=== PATIENT | male | born 1965 | race Caucasian/White ===

== ENCOUNTER 2016-08-07 21:10 | Emergency (ER) | payer MEDICAID ==
[2016-08-07 22:22] LABS: APPEARANCE CLEAR (CLEAR); BILIRUBIN NEGATIVE (NEGATIVE); COLOR STRAW (YELLOW); GLUCOSE NEGATIVE (NEGATIVE); KETONE NEGATIVE (NEGATIVE); LEUKOCYTE ESTERASE NEGATIVE (NEGATIVE); NITRITE NEGATIVE (NEGATIVE); PROTEIN NEGATIVE (NEGATIVE); UROBILINOGEN NORMAL (NORMAL)
[2016-08-07 22:33] LABS: UDS - AMPHET NEGATIVE QUAL (NEGATIVE); UDS - BARB NEGATIVE QUAL (NEGATIVE); UDS - BENZO POSITIVE QUAL (NEGATIVE); UDS - COCAINE NEGATIVE QUAL (NEGATIVE); UDS - METH NEGATIVE QUAL (NEGATIVE); UDS - OPIATE NEGATIVE QUAL (NEGATIVE); UDS - PCP NEGATIVE QUAL (NEGATIVE); UDS - THC NEGATIVE QUAL (NEGATIVE)
[2016-08-07 23:17] LABS: BASOPHILS 0.3 % (0.0-2.0); EOSINOPHILS 2.4 % (0-7); HEMATOCRIT 41.8 % (42.0-54.0); HEMOGLOBIN 14.9 g/dL (13.5-17.5); IMMATURE GRANULOCYTES 0.2 % (0-5); LYMPHOCYTES 24.6 % (15-50); MCH 31.4 pg (26.0-34.0); MCHC 35.6 g/dL (31.0-37.0); MCV 88.2 fL (80.0-100.0); MEAN PLATELET VOLUME 8.5 fL (7.4-10.4); MONOCYTES 9.9 % (2-11); NEUTROPHILS 62.6 % (40-80); RBC 4.74 10x6/uL (4.20-6.10); RDW 14.4 % (11.5-14.5); WBC 8.8 10x3/uL (4.8-10.8)
[2016-08-07 23:18] LABS: PLATELET COUNT 139 10x3/uL (130-400)
[2016-08-07 23:37] LABS: ALBUMIN 4.2 g/dL (3.4-5.0); ALKALINE PHOSPHATASE 76 U/L (46-116); ALT (SGPT) 83 U/L (10-68); BILIRUBIN - TOTAL 0.35 mg/dL (0.2-1.3); CALC OSMOLALITY 285 mosm/kg (275-300); CALCIUM 9.9 mg/dL (8.5-10.1); CARBON DIOXIDE 23.1 mmol/L (21.0-32.0); CHLORIDE - SERUM 105 mmol/L (98-107); GLUCOSE 114 mg/dL (74-106); POTASSIUM - SERUM 3.9 mmol/L (3.5-5.1); PROTEIN - SERUM 7.2 g/dL (6.4-8.2); SODIUM 144 mmol/L (136-145); UREA NITROGEN 7 mg/dL (7-18); eGFR NON AFRICAN AMERICAN 84 mL/min (90-120)
[2016-08-07 23:45] LABS: TROPONIN-I < 0.017 ng/mL (0.000-0.060)
== END 2016-08-08 04:00 | disposition short-term general hospital (02) ==
LOC: D.ER 21:10
PROVIDERS: Family Medicine
DX: F32.9 Major depressive disorder, single episode, unspecified (principal); F15.10 Other stimulant abuse, uncomplicated; F13.10 Sedative, hypnotic or anxiolytic abuse, uncomplicated; R45.851 Suicidal ideations; R44.3 Hallucinations, unspecified; E11.9 Type 2 diabetes mellitus without complications; R07.9 Chest pain, unspecified

== ENCOUNTER 2016-12-02 18:06 | Observation (INO) | payer MEDICAID ==
[~2016-12-02] VITALS: Ht 167.6 cm; Wt 78.0 kg
[2016-12-02 19:24] LABS: BASOPHILS 0.5 % (0-2); EOSINOPHILS 3.4 % (0-7); HEMATOCRIT 39.1 % (42.0-54.0); HEMOGLOBIN 14.1 g/dL (13.5-17.5); IMMATURE GRANULOCYTES 0.3 % (0-5); LYMPHOCYTES 35.7 % (15-50); MCH 31.3 pg (26.0-34.0); MCHC 36.1 g/dL (31.0-37.0); MCV 86.9 fL (80.0-100.0); MEAN PLATELET VOLUME 8.9 fL (7.4-10.4); MONOCYTES 9.3 % (2-11); NEUTROPHILS 50.8 % (40-80); PLATELET COUNT 142 10x3/uL (130-400); RDW 14.7 % (11.5-14.5); WBC 6.1 10x3/uL (4.8-10.8)
[2016-12-02 20:04] LABS: UDS - AMPHET NEGATIVE QUAL (NEGATIVE); UDS - BARB NEGATIVE QUAL (NEGATIVE); UDS - BENZO POSITIVE QUAL (NEGATIVE); UDS - COCAINE NEGATIVE QUAL (NEGATIVE); UDS - METH NEGATIVE QUAL (NEGATIVE); UDS - OPIATE NEGATIVE QUAL (NEGATIVE); UDS - PCP NEGATIVE QUAL (NEGATIVE); UDS - THC NEGATIVE QUAL (NEGATIVE)
[2016-12-02 20:10] LABS: HEMOGLOBIN A1C 6.4 % (4.8-6.0)
[2016-12-02 20:11] LABS: APPEARANCE CLEAR (CLEAR); COLOR YELLOW (YELLOW)
[2016-12-02 20:12] LABS: BILIRUBIN NEGATIVE (NEGATIVE); GLUCOSE NEGATIVE (NEGATIVE); KETONE NEGATIVE (NEGATIVE); LEUKOCYTE ESTERASE NEGATIVE (NEGATIVE); NITRITE NEGATIVE (NEGATIVE); PROTEIN NEGATIVE (NEGATIVE); SPECIFIC GRAVITY 1.015 (1.005-1.020); UROBILINOGEN NORMAL (NORMAL)
[2016-12-02 20:20] LABS: ALBUMIN 3.4 g/dL (3.4-5.0); ALKALINE PHOSPHATASE 60 U/L (46-116); ALT (SGPT) 29 U/L (10-68); BILIRUBIN - TOTAL 0.15 mg/dL (0.2-1.3); CALC OSMOLALITY 288 mosm/kg (275-300); CALCIUM 8.4 mg/dL (8.5-10.1); CARBON DIOXIDE 23.9 mmol/L (21.0-32.0); CHLORIDE - SERUM 109 mmol/L (98-107); GLUCOSE 211 mg/dL (74-106); POTASSIUM - SERUM 3.4 mmol/L (3.5-5.1); PROTEIN - SERUM 5.6 g/dL (6.4-8.2); SODIUM 143 mmol/L (136-145); TROPONIN-I < 0.017 ng/mL (0.000-0.060); UREA NITROGEN 7 mg/dL (7-18); eGFR NON AFRICAN AMERICAN 84 mL/min (90-120)
[2016-12-02 20:38] LABS: ACETAMINOPHEN 3.1 ug/mL (10.0-30.0)
[2016-12-02 20:53] LABS: AMYLASE - SERUM 45 U/L (25-115); LIPASE 366 U/L (73-393)
[2016-12-02] MEDS ORDERED: LISINOPRIL10 MG PO (22:44)
[2016-12-02] MEDS ORDERED: ATIVAN2 MG PO (22:44)
[2016-12-02] MEDS ORDERED: GLUCOPHAGE500 MG PO (22:44)
[2016-12-02 22:45] VITALS: BP 135/89; BMI 26.5
[2016-12-02] MEDS ORDERED: ULTRAM50 MG PO (22:45)
[2016-12-03] VITALS (27 sets, daily range): BP systolic 111–154; BP diastolic 63–95
[2016-12-03 05:12] LABS: CHOL - HDL RATIO 3.9 ratio (2.3-4.9)
--- NOTE | 2016-12-03 07:00 | NUR ---
REPORT RECEIVED. ASSESSMENT COMPLETED. NO NEEDS VOICED.
--- NOTE | 2016-12-03 08:40 | NUR ---
REPORT CALLED TO MOLLY SERNA IN CVICU. PATIENT WILL MOVE TO THAT UNIT.
--- NOTE | 2016-12-03 09:19 | NUR ---
PT BROUGHT TO ROOM VIA WHEELCHAIR. PT IS ALERT AND ORIENTED. RESPONDS TO QUESTIONS APPROPRIATELY. FLAT AFFECT. HOOKED UP TO MONITORING EQUIPMENT. ORIENTED TO ROOM. IV AT LEFT AC WITH NS AT 75 RUNNING, SITE WNL. ON ROOM AIR. PT HAS BELONGINGS BAG WITH NAME STICKER AT NURSES DESK. HR 77. SAT 95% ON ROOM AIR, RESP 12 BP 135/83
--- NOTE | 2016-12-03 10:47 | NUR ---
PT RESTING QUIETLY. VSS.
--- NOTE | 2016-12-03 11:00 | NUR ---
PT ASSISTED UP TO TOILET. SMALL BOWEL MOVEMENT. PT C/O LOWER ABDOMENAL PAIN.
--- NOTE | 2016-12-03 12:45 | HP ---
PATIENT: CYRUS JAVIER MEDICAL RECORD: [id number] ACCOUNT: [id number] LOCATION:[facility] D.CV02 : 66 ADMISSION DATE: 12/02/16 HISTORY AND PHYSICAL EXAMINATION HISTORY OF PRESENT ILLNESS: Mr. Javier is a 51-year-old white male that presents to the Emergency Room after overdosing on Valium, Xanax and Ativan. He is initially pretty lethargic, but is now easily arousable and oriented to person. He states that he has been having abdominal pain and just could not take anymore. He reports a blood in his stool. He has a history of colon cancer. oncologist in [place]. He has a history of substance abuse problems in the past. He is going to be admitted at this time for further evaluation. PAST MEDICAL HISTORY: Significant for colon cancer with excision in 2011. He has a history of some chest pain in the past that possibly was cardiac. He has a history of depression and diabetes. He has moved back and forth between [facility] and [place] and does not have a recent primary care physician here in [facility]. He is admitted to the ICU for monitoring of his overdose and psychiatric consult. We will try to work out the source of his abdominal pain and reassess his diabetes. Past medical history again is significant for colon cancer with colon resection in 2011, recreational drug use, NIDDM, depression and hypertension. PAST SURGICAL HISTORY: Previous surgeries include a colon resection and an appendectomy. He also had some bladder surgeries in his appendix out according to patient. Previous back surgeries. ALLERGIES OR INTOLERANCES: INCLUDE HALDOL. HOME MEDICATIONS: Include lisinopril 10 mg a day, metformin 500 b.i.d., Ativan 3 times a day and tramadol 3 times a day. Some of the meds he took tonight that he overdosed on belong to a friend. FAMILY HISTORY: Sketchy. SOCIAL HISTORY: The patient has a history of recreational drug use. He is disabled due to mental problems and some plates in his back. REVIEW OF SYSTEMS: He denies any fever. Denies any weight loss. Does complain of abdominal pain with recent blood per rectum. He denies any dysuria. He denies chest pain or shortness of breath. He complains of increasing depression with suicidal thoughts. PHYSICAL EXAMINATION: GENERAL: He is now alert and oriented. He appears in no distress. HEENT: Sclerae nonicteric. NECK: Soft and supple. HEART: Regular. LUNGS: Clear. ABDOMEN: Soft, reveal scar from previous surgery. He is tender in the left lower quadrant. NEUROLOGIC: Without any gross focal deficits. IMPRESSION: HISTORY AND PHYSICAL [id number] CYRUS JAVIER 1. Overdose. 2. Depression. 3. History of recreational drug use. 4. Hms-xghgoif-zerchfjqe diabetes mellitus. 5. History of colon cancer. PLAN: Admit to ICU. Psych consult. IV fluids. Check CEA level. CT abdomen and pelvis. See orders for rest of plan. TRANSINT:[id number] Voice Confirmation ID: [id number] DOCUMENT ID: [id number] ASHER RITTER DO at 1245 CC: [id number] DICTATION DATE: 12/02/162002 ANTIQUE AUTOMOBILES REPAIRER: 12/02/16 2221 ADM IN [facility] [address] [place] [address]
--- NOTE | 2016-12-03 12:59 | NUR ---
DR HUSTON HAS BEEN IN TO SEE PATIENT. DR SILVERMAN NOW IN SPEAKING TO PATIENT
--- NOTE | 2016-12-03 14:45 | NUR ---
PT ASKING FOR NICOTINE PATCH. DR RITTER PAGED. MARSHA GARCIA RETURNED CALL FOR DR RITTER. ASKED FOR ORDER OF 14MG PATCH DAILY DR CÁRDENAS IN ROOM TO SEE PATIENT AT THIS TIME
--- NOTE | 2016-12-03 17:24 | NUR ---
PT GIVEN BOWEL PREP AND EXPLAINED HE NEEDED TO DRINK AT 1 FULL CUP EVERY 45 MINUTES. C/O PAIN IN ABDOMEN. HAD TO EXPLAIN AGAIN HIS PAIN MEDICINE IS ONLY AVAILABLE EVERY 6 HOURS AND HIS NEXT DOSE CANNOT BE BEFORE 7:15. BEDSIDE TOILET PROVIDED FOR CONVENIENCE FOR HIM WELL WIPES AND BUTT PASTE.
--- NOTE | 2016-12-03 18:42 | NUR ---
PT HAS BEEN UP TO BEDSIDE TOILET FOR BM. NO BLEEDING NOTED. PT HR HAS STARTED DIPPING DOWN IN TO 57-59 RANGE OVER THE LAST 15 MINUTES. SINUS RHYTHM.
--- NOTE | 2016-12-03 19:00 | NUR ---
Received patient resting in bed with eyes open, Assessment completed per flowsheet. Patient AO x4, calm and cooperative. Eyes PERRLA @ 3mm with brisk response, sclera is white. S1/S2 noted NSR on telemetry with HR 64, rhythmic and regular. Crackles noted on expiration bilateral upper and mid with diminished lower, breathing is even and unlabored on room air with O2 sat 94%. Abdomen is soft and round, bowel sounds active x4. Patient currently on Aarti, ambulates to bedside without assistance. Full ROM all extremities with all pulses palpable, cap refill <3 sec. 20g PIV noted L AC, dressing intact with fluids infusing. Patient c/o constant abdominal pain rates 6/10, repositioned and will provide PRN pain meds when available. Denies other needs at this time, all VSS and will continue to monitor.
--- NOTE | 2016-12-03 23:00 | NUR ---
Reassessment completed per flowsheet, patient resting in bed with eyes closed. S1/S2 noted NSR on telemetry with HR 61, rhythmic and regular. Breathing is even and unlabored on room air, O2 sat 95%. Abdomen is tender to touch with bowel sounds active x4, large amount of liquid brown stool noted in bedside commode. Patient states chronic pain lower abdomen /10, repositioned for comfort with PRN medication given. No further needs at this time, all VSS and will continue to monitor.
[2016-12-04] VITALS (24 sets, daily range): BP systolic 111–152; BP diastolic 77–99; Ht 167.6 cm; Wt 78.0 kg
--- NOTE | 2016-12-04 01:00 | NUR ---
Patient resting in bed with eyes closed, breathing is even and unlabored. Patient states no desire to harm self at this time, "just wants stomach to stop hurting" and states pain 3/10. Repositioned for comfort, no further needs at this time, all VSS and will continue to monitor.
--- NOTE | 2016-12-04 02:58 | NUR ---
Reassessment completed per flowsheet, patient resting in bed with eyes closed. S1/S2 noted Sinus Juan on telemetry with HR 59, rhythmic and regular. Breathing is even and unlabored on room air, O2 sat 94%. Crackles noted on expiration bilateral upper with diminished lower. Abdomen is round and soft, tender to palpation and passing flatus with liquid brown stool noted in bedside commode. Patient states chronic abdominal pain 3/, repositioned with patient stating relief. No further needs at this time, all VSS and will continue to monitor.
[2016-12-04 04:25] LABS: BASOPHILS 0.4 % (0-2); EOSINOPHILS 3.5 % (0-7); HEMATOCRIT 38.6 % (42.0-54.0); HEMOGLOBIN 13.8 g/dL (13.5-17.5); LYMPHOCYTES 44.4 % (15-50); MCH 30.9 pg (26.0-34.0); MCHC 35.8 g/dL (31.0-37.0); MCV 86.4 fL (80.0-100.0); MEAN PLATELET VOLUME 8.8 fL (7.4-10.4); MONOCYTES 11.7 % (2-11); PLATELET COUNT 122 10x3/uL (130-400); RBC 4.47 10x6/uL (4.20-6.10); RDW 14.6 % (11.5-14.5); WBC 4.9 10x3/uL (4.8-10.8)
[2016-12-04 04:35] LABS: ALBUMIN 3.1 g/dL (3.4-5.0); ALKALINE PHOSPHATASE 58 U/L (46-116); ALT (SGPT) 30 U/L (10-68); AMYLASE - SERUM 39 U/L (25-115); BILIRUBIN - TOTAL 0.37 mg/dL (0.2-1.3); CALCIUM 7.9 mg/dL (8.5-10.1); CARBON DIOXIDE 27.4 mmol/L (21.0-32.0); CHLORIDE - SERUM 107 mmol/L (98-107); CREATININE - SERUM 0.9 mg/dL (0.6-1.3); LIPASE 183 U/L (73-393); POTASSIUM - SERUM 3.8 mmol/L (3.5-5.1); PROTEIN - SERUM 5.5 g/dL (6.4-8.2); SODIUM 140 mmol/L (136-145); UREA NITROGEN 6 mg/dL (7-18); eGFR NON AFRICAN AMERICAN > 90 mL/min (90-120)
[2016-12-04 04:37] LABS: CALC OSMOLALITY 277 mosm/kg (275-300); GLUCOSE 110 mg/dL (74-106)
--- NOTE | 2016-12-04 07:00 | NUR ---
rec'd care of pt.&o x3.
--- NOTE | 2016-12-04 07:45 | NUR ---
INITIAL ASSWESSMENT COMPLETED PER FLOW SHEET. PIV STARTED AT RIGHT AC. 20 GAUGE.
--- NOTE | 2016-12-04 08:45 | NUR ---
PT. STATES "I WAS SORTA TRYING TO HURT MYSELF WHEN I TOOK THE MEDICINE." VERBAL NO HARM CONTRACT OBTAINED.
--- NOTE | 2016-12-04 11:00 | NUR ---
1500CC SOAP H2O ENEMA X2.
--- NOTE | 2016-12-04 11:00 | NUR ---
REASSESSMENT COMPLETED PER FLOW SHEET. NO ACUTE CHANGES.
--- NOTE | 2016-12-04 12:30 | NUR ---
GI TEAM SETTING UP AT BEDSIDE FOR PROCEDURES.
--- NOTE | 2016-12-04 13:23 | NUR ---
GI TEAM PERFORMING EGD AND COLONOSCOPY.
--- NOTE | 2016-12-04 13:38 | CN ---
PATIENT NAME:CYRUS JAVIER MEDICAL RECORD: [id number] : 67 LOCATION:[facility].CV02 ADMIT DATE: 12/02/16 ACCOUNT: [id number] CONSULTING PHYSICIAN: MICHAEL SILVERMAN MD REFERRING PHYSICIAN: ASHER RITTER DO DATE OF CONSULTATION: 12/03/2016 Psychiatric Consultation IDENTIFYING DATA: The patient is 51 years old and admitted to the hospital after an overdose. CHIEF COMPLAINT: "My stomach hurts." HISTORY OF PRESENT ILLNESS: The patient has a number of depressive symptoms. He endorses loss of interest in usual activities and feeling helpless and hopeless. He freely admits that he took the overdose of the multiple benzodiazepines in an effort to kill himself. He says that he has ongoing and periodic thoughts about still hurting himself and says that his main problem is that his stomach hurts, that he will kill himself if something cannot be done to fix this. PAST PSYCHIATRIC HISTORY: Significant for polysubstance abuse as well as previous psychiatric hospitalizations as well as previous suicide attempts. The patient appears to be of borderline intellectual functioning or perhaps even mentally retarded. MENTAL STATUS EXAMINATION: The patient is awake, alert and oriented to person, place, time and situation. His mood is flat. His affect is constricted. Thought processes are circumstantial. Memory, concentration and abstraction abilities are moderately impaired and he denies that he would actively seek to harm others, but has the ambivalent feelings about harming himself as described above. He denies psychotic symptoms. ASSESSMENT: 1. Status post overdose. 2. Major depression. 3. 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 4. History of substance abuse. PLAN: At this time, the patient is not acutely dangerous, but I do believe he has the potential to harm himself under the right set of circumstances and I further believe that he does not have the ability to appropriately seek interventions that might help him. It is my recommendation that once medically stabilized, he be transferred to adult inpatient psychiatric care and he is very much willing to do this. He has been to the [facility] and would like to return there. I also think it is appropriate to start an antidepressant while hospitalized here and evaluating his abdominal pain. TRANSINT:[id number] Voice Confirmation ID: [id number] DOCUMENT ID: [id number] CONSULT REPORT [id number] CYRUS JAVIER, MICHAEL MURPHY at 1338 CC: [id number] DICTATION DATE: 12/03/161509 TECHNICAL SOLUTIONS ENGINEER: 12/03/16 1538 ADM IN [place] [id number] [place] [id number]
--- NOTE | 2016-12-04 14:56 | NUR ---
REASSESSMENT COMPLETED PER FLOW SHEET. NO ACUTE CHANGES.
--- NOTE | 2016-12-04 16:54 | NUR ---
WATCHING TV. DENIES NEEDS. VSS.
--- NOTE | 2016-12-04 19:00 | NUR ---
SHIFT ASSESSMENT COMPLETE, SEE FOR DETAILS. PATIENT ALERT AND ORIENTED X4, VSS, RAC PIV INFUSING NS @ 75MLS/HR. SITE C/D/I WITH NO S/S OF INFILTRATION OR INFECTION. PATIENT UP TO BEDSIDE COMMODE AT THIS TIME. AMBULATES WELL, STEADY GATE.
--- NOTE | 2016-12-04 21:00 | NUR ---
PATIENT DENIES NEED AT THIS TIME. NO VISITORS.
--- NOTE | 2016-12-04 23:00 | NUR ---
REASSESSMENT COMPLETE, SEE FLOWSHEET FOR DETAILS. NO CHANGES, VSS.
--- NOTE | 2016-12-04 23:28 | NUR ---
PT IN UNCONTROLLED A FIB RATE 128. ORDERS RECIEVED. WILL ADM.
--- NOTE | 2016-12-04 23:36 | NUR ---
PT CONVERTED INTO NSR. RATE 86 ON OWN.
[2016-12-05] VITALS (24 sets, daily range): BP systolic 103–140; BP diastolic 53–92
--- NOTE | 2016-12-05 01:00 | NUR ---
PATIENT RESTING WITH EYES CLOSED, VSS.
--- NOTE | 2016-12-05 03:01 | NUR ---
REASSESSMENT COMPLETE, DENIES NEED. BED LOW AND CL IN REACH. VSS. SEE FLOWSHEET FOR DETAILS.
--- NOTE | 2016-12-05 05:14 | NUR ---
PATIENT RESTING WITH EYES CLOSED. VSS. CL IN REACH. BED LOW AND LOCKED. WILL MONITOR.
--- NOTE | 2016-12-05 07:00 | NUR ---
REPORT RECEIVED, SHIFT ASSESSMENT COMPLETE. SEE FLOWSHEET FOR FINDINGS.
--- NOTE | 2016-12-05 08:20 | NUR ---
PT C/O PAIN IN ABDOMEN. REQUESTED PAIN MEDICATIONS. IV DILAUDID PROVIDED. MORNING MEDICATIONS ADMINISTERED. DENIES ANY OTHER NEEDS AT THIS TIME.
--- NOTE | 2016-12-05 11:00 | NUR ---
PT ASKING ABOUT BEING DISCHARGED HOME AND POSSIBLY DOING OUTPATIENT PSYCH CARE. LET HIM KNOW THAT MOST LIKELY WITH HAVE TO DO INPATIENT CARE AT DISCHARGE AND THEN WILL HAVE FOLLOW UP OUTPATIENT CARE. HE ASKED ME TO DISCUSS THIS WITH DR RITTER. I DID. DR RITTER SAID DR SILVERMAN HAD INDICATED THAT THE PATIENT WOULD HAVE TO GO TO INPATIENT CARE AT DISCHARGE.
--- NOTE | 2016-12-05 13:43 | NUR ---
CM NOTE: REFERRAL SENT TO BENITA AT [facility]. [facility] HAS NUMBER TO UNIT TO CONTACT BENITA IF NEEDED. .
--- NOTE | 2016-12-05 14:21 | NUR ---
PT C/O PAIN. ASKED FOR PAIN MEDICATION. RATES PAIN /
--- NOTE | 2016-12-05 17:00 | NUR ---
DINNER TRAY PROVIDED TO PATIENT. HE REQUESTED A CUP OF COFFEE. COFFEE PROVIDED
--- NOTE | 2016-12-05 19:00 | NUR ---
LAYING IN BED SUPINE. ENCOURAGED TO TURN AT LEAST EVERY 2 HOURS. NO VISITORS. TV ON. ORIENTED TO TIME, PERSON, AND PLACE. SCALP INTACT. EENT WNL. SKIN DRY, INTACT AND WARM TO THE TOUCH. S1S2 PRESENT. CAROTID PULSES +2 RADIAL PULSES +2 EQUAL BILATERALLY. POPLITEAL PULSES +2 EQUAL BILATERALLY. SYMMETRICAL RISE AND FALL OF CHEST. LUNG SOUNDS CLEAR ALL LOBES. ABDOMEN OBESE NONTENDER AND NONDISTENDED. BS PRESENT X4. ASSISTED PT OUT OF BED HE NEEDED TO USE THE BATHROOM. GAIT STEADY NO PROBLEMS AMBULATING ON OWN. URINE OUTPUT CLEAR YELLOW. NO PROBLEMS STATED WITH VOIDING. BACK IN BED. BED IN LOWEST POSITION. CALL LIGHT WITHIN REACH. DENIES FURTHER NEEDS AT THIS TIME.
--- NOTE | 2016-12-05 21:00 | NUR ---
LAYING IN BED ON HIS R SIDE. ASSISTED OUT OF BED TO USE BATHROOM. GAIT STEADY. NO PROBLEMS AMBULATING. VOIDED CLEAR YELLOW URINE. ASSISTED BACK IN BED. SCDs BACK ON. BED IN LOWEST POSITION. CALL LIGHT WITHIN REACH. DENIES FURTHER NEEDS AT THIS TIME.
--- NOTE | 2016-12-05 23:00 | NUR ---
LAYING ON HIS L SIDE. SLEEPING. LIGHTS OFF. BED IN LOWEST POSITION.
[2016-12-06] VITALS (12 sets, daily range): BP systolic 106–134; BP diastolic 60–81
--- NOTE | 2016-12-06 01:00 | NUR ---
ASLEEP LAYING ON R SIDE. BED IN LOWEST POSITION. CALL LIGHT WITHIN REACH.
--- NOTE | 2016-12-06 03:00 | NUR ---
REASSESSMENT COMPLETE. SEE FLOWSHEET. BED IN LOWEST POSITION. CALL LIGHT WITHIN REACH. DENIES NEEDS AT THIS TIME.
--- NOTE | 2016-12-06 09:52 | NUR ---
TC to [facility] @ 2013 as follow up to referral 12/05/16. Screener to call CM with decision. She presently has four referrals. DILLON spoke with primary nurse, Samra to advise of present status.
--- NOTE | 2016-12-06 11:15 | NUR ---
UP IN ROOM. NO CURRENT NEEDS OR C/O.
--- NOTE | 2016-12-06 16:15 | NUR ---
SPOKE WITH STEPHANIE FROM [facility]. STATES AT THIS TIME THEY HAVE NO MALE BED AVAILABLE. CASE MANAGEMENT NOTIFIED.
--- NOTE | 2016-12-06 18:50 | NUR ---
Dillon received telephone from [facility] stating patient needs could not be met. DILLON had contacted the [facility]. Had spoken with Lupe. She stated they were expecting discharges after 1600. She requested clinical be faxed. DILLON faxed at [phone] Received telephone call from Lupe. They had received 2 ER referrals. She did not have an available bed at any [facility] facility at this time. CM to continue search.
--- NOTE | 2016-12-06 19:00 | NUR ---
1900- SHIFT ASSESSMENT COMPLETE, SEE FLOWSHEET. VSS, CL IN REACH, NO S/S OF DISTESS. A&O X4. WILL MONITOR 2100- NIGHT MEDS GIVEN ALONG WITH BEVERAGE. DENIES FURTHER NEED. 2300- PATIENT RESTING WITH EYES CLOSED. RR EVEN AND NONLABORED, VSS. WILL CONTINUE TO MONITOR. 0100- PATIENT RESTING WITH EYES CLOSED. VSS. 0300- REASSESSMENT DONE, RR EVEN, NO SIGNS OF DISTRESS. S1S2, ASYMPTOMATIC BRADYCARDIA ON MONITOR WITH A RATE OF 55. DENIES NEED AT THIS TIME. WILL MONITOR. 0300
[2016-12-07 03:00] VITALS: BP 107/56
--- NOTE | 2016-12-07 06:00 | NUR ---
MORNING MEDS GIVEN, ALONG WITH PRN PAIN MED.
[2016-12-07 07:00] VITALS: BP 101/68
[2016-12-07 11:00] VITALS: BP 135/85
[2016-12-07 15:00] VITALS: BP 133/86
--- NOTE | 2016-12-07 15:20 | NUR ---
SPOKE WITH AFTER HOURS SCREENER FOR [facility]. STATES NO MALE BEDS OPEN AT THIS TIME.
--- NOTE | 2016-12-07 15:31 | NUR ---
SPOKE WITH DR. RITTER. INFORMED OF PT'S DESIRE TO GO HOME AND DO OUTPATIENT FOLLOW UP. STATES AT THIS TIME PT IS NOT ON A HOLD BUT IF PT SHOULD CHANGE HIS MIND ABOUT VOLUNTARILY GOING TO TREATMENT A HOLD WOULD BE NECESSARY DUE TO THE PSYCH DOCTOR'S RECOMMENDATIONS.
[2016-12-07 19:00] VITALS: BP 134/83
--- NOTE | 2016-12-07 19:00 | NUR ---
TC to [facility] and spoke with stars coordinatorElysia. No beds. TC to [facility] by Samra, primary nurse, No beds. TC to [facility]- no beds. TC to [facility]- Animal Care Attendant, Ernie. No beds. TC to [facility] - patients over 60 only. TC to [facility]. Spoke with Ashleigh. Faxed clinical to [phone] for review at 1600- CM nor primary nurse has been appraised of decision. patient is growing impatient as per primary nurse. DR Dennis aware of progress.
--- NOTE | 2016-12-07 19:00 | NUR ---
Received patient resting in bed with eyes open, Assessment completed per flowsheet. AO x4, calm and cooperative. Eyes PERRLA @ 3mm with brisk response, sclera white. S1/S2 noted with patient Sinus Juan on Telemetry with HR 50, rhythmic and regular. Breathing is even and unlabored on room air, lung sounds clear all hernandez. Abdomen is soft and flat, non-tender to palpation with bowel sounds active x4. Patient ambulates sefl to bathroom without assistance, no difficulties reported. 20g PIV noted R AC, saline locked with dressing intact. Full ROM all extremities with all pulses palpable, cap refill <3 sec. Patient denies pain or other needs at this time, all VSS and will continue to monitor.
--- NOTE | 2016-12-07 21:00 | NUR ---
No visitors at this time. Patient states he hungry, sandwich tray provided. No further needs at this time, all VSS and will continue to monitor.
[2016-12-07 23:00] VITALS: BP 154/87
--- NOTE | 2016-12-07 23:00 | NUR ---
Patient resting in bed with eyes closed. S1/S2 noted with patient Sinus Juan on telemetry with HR 53, rhythmic and regular. Breathing is even and unlabored on room air, O2 sat 95%. Denies pain or other needs at this time, all VSS and will continue to monitor.
[2016-12-08 03:00] VITALS: BP 116/67
--- NOTE | 2016-12-08 03:00 | NUR ---
Patient resting in bed with eyes closed. S1/S2 noted with patient Sinus Juan on telemetry with HR 52, rhythmic and regular. Breathing is even and unlabored on room air, O2 sat 95%. Patient denies pain or other needs at this time, all VSS and will continue to monitor.
--- NOTE | 2016-12-08 05:00 | NUR ---
Patient resting in bed with eyes closed, breathing is even and unlabored on room air. Denies pain or other needs at this time, all VSS and will continue to monitor.
[2016-12-08 07:00] VITALS: BP 131/86
--- NOTE | 2016-12-08 07:06 | NUR ---
REPORT RECD PT CARE ASSUMED. PT IS ALERT AND ORIENTED X4. S1S2 NOTED, SB PER CM. LUNG SOUNDS CLR BILAT. PT IS AMBUALTORY. PT C/O 8/10 STOMACH/ KNEE PAIN AT THIS TIME. WILL ADDRESS. PT PROVIDED WITH BREAKFAST TRAY, FEEDS INDEPENDENTLY. VSS. WILL MONITOR.
--- NOTE | 2016-12-08 09:00 | NUR ---
PT RESTING COMFORTABLY IN BED. FRESH COFFEE PROVIDED ON REQUEST. VSS. WILL CONTINUE TO MONITOR.
[2016-12-08 11:00] VITALS: BP 136/83
--- NOTE | 2016-12-08 11:03 | NUR ---
NO CHANGES PER REASSESSMENT. VSS.
--- NOTE | 2016-12-08 12:49 | NUR ---
Nutrition follow-up: diet: Regular PO intake 100% of meals Labs reviewed RDN following.
[2016-12-08 15:00] VITALS: BP 141/85
--- NOTE | 2016-12-08 15:00 | NUR ---
SPOKE WITH DR SILVERMAN AND DR TORRES, OK TO SEND TO OUTPATIENT, WILL D/C TODAY.
[2016-12-08] MEDS ORDERED: CELEXA20 MG PO (15:31)
[2016-12-08] MEDS ORDERED: PROTONIX40 MG PO (15:34)
--- NOTE | 2016-12-08 16:32 | NUR ---
DISCHARGE INSTRUCTIONS DISCUSSED WITH PT. PT AMBULATORY TO LEAVE.
--- NOTE | 2016-12-09 14:44 | PN ---
PATIENT:CYRUS JAVIER MEDICAL RECORD: [id number] LOCATION:[facility] D.CV0 ADMISSION DATE: 12/02/16 PROGRESS NOTE DATE OF SERVICE: 12/08/2016 SUBJECTIVE: The patient's case was discussed with staff. He has no new complaint. OBJECTIVE: The patient has been in the hospital now for a week, his stomach no longer hurts and he is no longer expressing any distress. His primary care doctor started him on an antidepressant a week ago. He says it has been helpful. He denies that he wants to harm himself and he now is saying that the amount of medication he supposedly took with the overdose is not correct and that it was less. He says that he did this because he was angry with his roommate. He does not want to go to inpatient psychiatric care. ASSESSMENT: No change in diagnoses. PLAN: The patient to my review is extremely manipulative and attention seeking in a manner consistent with a personality disorder. I do think he is or was significantly depressed. I also think he made something of a suicide attempt. He does not currently meet inpatient criteria for involuntary treatment and that he is denying being suicidal and is clearly not psychotic. I am still recommending inpatient treatment. He is, however, refusing it and cannot be forced at this point with a court order to go to psychiatric care on an inpatient basis. Given those circumstances, I am at least somewhat reassured by the fact that he is willing to go to outpatient treatment at [facility] and he will have an appointment for this before being discharged when medically stable. TRANSINT:[id number] Voice Confirmation ID: [id number] DOCUMENT ID: [id number] MICHAEL SILVERMAN MD at 1444 CC: [id number] DICTATION DATE: 12/08/16 1504 SENIOR BILLING CONSULTANT: 12/09/16 0016 DIS IN 12/08/16 [facility] [address] [place] [address]
== END 2016-12-08 16:45 | disposition home or self-care (01) ==
LOC: D.ER 18:06 → D.ICU 20:32 → OBSVTIME 20:32 → D.CVICU 20:32 → D.ICU 20:32 → D.CVICU 12-03 09:19
PROVIDERS: Physician Assistant; ADMIT Family Medicine
DX: T42.4X2A Poisoning by benzodiazepines, intentional self-harm, initial encounter (principal); R10.9 Unspecified abdominal pain; K66.0 Peritoneal adhesions (postprocedural) (postinfection); K29.70 Gastritis, unspecified, without bleeding; K57.90 Diverticulosis of intestine, part unspecified, without perforation or abscess without bleeding; F32.9 Major depressive disorder, single episode, unspecified; I10 Essential (primary) hypertension; E11.9 Type 2 diabetes mellitus without complications; Z85.038 Personal history of other malignant neoplasm of large intestine; Z72.0 Tobacco use

== ENCOUNTER 2016-12-31 02:38 | Emergency (ER) | payer MEDICAID ==
[2016-12-04 11:06] VITALS: BMI 28.9
[~2016-12-31 02:38] MED LIST: ATIVAN2 MG PO; CELEXA20 MG PO; GLUCOPHAGE500 MG PO; LISINOPRIL10 MG PO; PROTONIX40 MG PO; ULTRAM50 MG PO
[2016-12-31 03:05] LABS: BASOPHILS 0.8 % (0-2); EOSINOPHILS 2.6 % (0-7); HEMATOCRIT 41.5 % (42.0-54.0); HEMOGLOBIN 15.2 g/dL (13.5-17.5); IMMATURE GRANULOCYTES 0.2 % (0-5); LYMPHOCYTES 49.9 % (15-50); MCHC 36.6 g/dL (31.0-37.0); MCV 84.7 fL (80.0-100.0); MEAN PLATELET VOLUME 8.6 fL (7.4-10.4); MONOCYTES 9.5 % (2-11); RDW 14.1 % (11.5-14.5); WBC 5.1 10x3/uL (4.8-10.8)
[2016-12-31 03:08] LABS: PLATELET COUNT 152 10x3/uL (130-400)
[2016-12-31 03:08] LABS: APPEARANCE CLEAR (CLEAR); BILIRUBIN NEGATIVE (NEGATIVE); COLOR STRAW (YELLOW); GLUCOSE NEGATIVE (NEGATIVE); KETONE NEGATIVE (NEGATIVE); LEUKOCYTE ESTERASE NEGATIVE (NEGATIVE); NITRITE NEGATIVE (NEGATIVE); PH 5.5 (5.0-6.0); PROTEIN NEGATIVE (NEGATIVE); SPECIFIC GRAVITY 1.005 (1.005-1.020); UROBILINOGEN NORMAL (NORMAL)
[2016-12-31 03:18] LABS: UDS - AMPHET NEGATIVE QUAL (NEGATIVE); UDS - BARB NEGATIVE QUAL (NEGATIVE); UDS - BENZO NEGATIVE QUAL (NEGATIVE); UDS - COCAINE NEGATIVE QUAL (NEGATIVE); UDS - METH NEGATIVE QUAL (NEGATIVE); UDS - OPIATE NEGATIVE QUAL (NEGATIVE); UDS - PCP NEGATIVE QUAL (NEGATIVE); UDS - THC NEGATIVE QUAL (NEGATIVE)
[2016-12-31 03:23] LABS: ALBUMIN 4.1 g/dL (3.4-5.0); ALKALINE PHOSPHATASE 82 U/L (46-116); ALT (SGPT) 40 U/L (10-68); CALC OSMOLALITY 275 mosm/kg (275-300); CALCIUM 8.4 mg/dL (8.5-10.1); CARBON DIOXIDE 23.8 mmol/L (21.0-32.0); CHLORIDE - SERUM 102 mmol/L (98-107); CREATININE - SERUM 0.9 mg/dL (0.6-1.3); GLUCOSE 153 mg/dL (74-106); POTASSIUM - SERUM 3.5 mmol/L (3.5-5.1); PROTEIN - SERUM 7.1 g/dL (6.4-8.2); SODIUM 138 mmol/L (136-145); UREA NITROGEN 3 mg/dL (7-18); eGFR NON AFRICAN AMERICAN > 90 mL/min (90-120)
== END 2016-12-31 13:15 | disposition home or self-care (01) ==
LOC: D.ER 02:38
PROVIDERS: Family Medicine
DX: R45.851 Suicidal ideations (principal); F10.129 Alcohol abuse with intoxication, unspecified

== ENCOUNTER 2017-01-30 14:54 | Emergency (ER) | payer MEDICAID ==
[2016-12-04 11:06] VITALS: BMI 28.9
[2017-01-30 15:40] LABS: BASOPHILS 0.3 % (0-2); EOSINOPHILS 1.2 % (0-7); HEMATOCRIT 46.4 % (42.0-54.0); HEMOGLOBIN 16.7 g/dL (13.5-17.5); IMMATURE GRANULOCYTES 0.3 % (0-5); LYMPHOCYTES 24.2 % (15-50); MCH 31.3 pg (26.0-34.0); MCV 87.1 fL (80.0-100.0); MEAN PLATELET VOLUME 8.7 fL (7.4-10.4); MONOCYTES 6.6 % (2-11); NEUTROPHILS 67.4 % (40-80); PLATELET COUNT 147 10x3/uL (130-400); RBC 5.33 10x6/uL (4.20-6.10); RDW 14.4 % (11.5-14.5); WBC 7.3 10x3/uL (4.8-10.8)
[2017-01-30 15:45] LABS: APPEARANCE CLEAR (CLEAR); BILIRUBIN NEGATIVE (NEGATIVE); COLOR YELLOW (YELLOW); GLUCOSE 50 mg/dL (NEGATIVE); KETONE NEGATIVE (NEGATIVE); LEUKOCYTE ESTERASE NEGATIVE (NEGATIVE); NITRITE NEGATIVE (NEGATIVE); PROTEIN NEGATIVE (NEGATIVE); UROBILINOGEN NORMAL (NORMAL)
[2017-01-30 15:59] LABS: UDS - AMPHET NEGATIVE QUAL (NEGATIVE); UDS - BARB NEGATIVE QUAL (NEGATIVE); UDS - BENZO NEGATIVE QUAL (NEGATIVE); UDS - COCAINE NEGATIVE QUAL (NEGATIVE); UDS - METH NEGATIVE QUAL (NEGATIVE); UDS - OPIATE NEGATIVE QUAL (NEGATIVE); UDS - PCP NEGATIVE QUAL (NEGATIVE); UDS - THC NEGATIVE QUAL (NEGATIVE)
[2017-01-30 16:10] LABS: ALBUMIN 3.8 g/dL (3.4-5.0); ANION GAP 15.8 mmol/L (8-16); BILIRUBIN - TOTAL 0.35 mg/dL (0.2-1.3); CALCIUM 9.3 mg/dL (8.5-10.1); CARBON DIOXIDE 24.7 mmol/L (21.0-32.0); CREATININE - SERUM 1.2 mg/dL (0.6-1.3); POTASSIUM - SERUM 4.5 mmol/L (3.5-5.1); PROTEIN - SERUM 7.1 g/dL (6.4-8.2)
== END 2017-01-30 19:20 | disposition short-term general hospital (02) ==
LOC: D.ER 14:54
PROVIDERS: Emergency Medicine
DX: R45.851 Suicidal ideations (principal); F15.10 Other stimulant abuse, uncomplicated; Z85.038 Personal history of other malignant neoplasm of large intestine; E11.9 Type 2 diabetes mellitus without complications; I10 Essential (primary) hypertension; F17.200 Nicotine dependence, unspecified, uncomplicated; R00.0 Tachycardia, unspecified

== ENCOUNTER 2017-03-07 17:42 | Emergency (ER) | payer MEDICAID ==
[2016-12-04 11:06] VITALS: BMI 28.9
[2017-03-07 18:18] LABS: APPEARANCE CLEAR (CLEAR); BILIRUBIN NEGATIVE (NEGATIVE); COLOR YELLOW (YELLOW); GLUCOSE NEGATIVE (NEGATIVE); KETONE NEGATIVE (NEGATIVE); LEUKOCYTE ESTERASE NEGATIVE (NEGATIVE); NITRITE NEGATIVE (NEGATIVE); PH 5.5 (5.0-6.0); PROTEIN NEGATIVE (NEGATIVE); SPECIFIC GRAVITY 1.005 (1.005-1.020); UROBILINOGEN NORMAL (NORMAL)
[2017-03-07 18:20] LABS: UDS - AMPHET NEGATIVE QUAL (NEGATIVE); UDS - BARB NEGATIVE QUAL (NEGATIVE); UDS - BENZO NEGATIVE QUAL (NEGATIVE); UDS - COCAINE NEGATIVE QUAL (NEGATIVE); UDS - METH NEGATIVE QUAL (NEGATIVE); UDS - OPIATE NEGATIVE QUAL (NEGATIVE); UDS - PCP NEGATIVE QUAL (NEGATIVE); UDS - THC NEGATIVE QUAL (NEGATIVE)
[2017-03-07 18:27] LABS: BASOPHILS 0.6 % (0-2); EOSINOPHILS 1.7 % (0-7); HEMATOCRIT 45.5 % (42.0-54.0); HEMOGLOBIN 16.7 g/dL (13.5-17.5); IMMATURE GRANULOCYTES 0.1 % (0-5); LYMPHOCYTES 47.8 % (15-50); MCH 31.5 pg (26.0-34.0); MCHC 36.7 g/dL (31.0-37.0); MCV 85.8 fL (80.0-100.0); MONOCYTES 5.9 % (2-11); NEUTROPHILS 43.9 % (40-80); PLATELET COUNT 157 10x3/uL (130-400); RDW 13.8 % (11.5-14.5); WBC 7.1 10x3/uL (4.8-10.8)
[2017-03-07 18:49] LABS: ALBUMIN 4.3 g/dL (3.4-5.0); ALKALINE PHOSPHATASE 87 U/L (46-116); ALT (SGPT) 39 U/L (10-68); BILIRUBIN - TOTAL 0.33 mg/dL (0.2-1.3); CALC OSMOLALITY 264 mosm/kg (275-300); CALCIUM 8.5 mg/dL (8.5-10.1); CARBON DIOXIDE 24.6 mmol/L (21.0-32.0); CHLORIDE - SERUM 97 mmol/L (98-107); CREATININE - SERUM 0.8 mg/dL (0.6-1.3); GLUCOSE 140 mg/dL (74-106); POTASSIUM - SERUM 3.6 mmol/L (3.5-5.1); PROTEIN - SERUM 7.4 g/dL (6.4-8.2); SODIUM 133 mmol/L (136-145); UREA NITROGEN 3 mg/dL (7-18); eGFR NON AFRICAN AMERICAN > 90 mL/min (90-120)
== END 2017-03-08 18:23 ==
LOC: D.ER 17:42
PROVIDERS: Emergency Medicine
DX: R45.851 Suicidal ideations (principal); F15.10 Other stimulant abuse, uncomplicated; F12.10 Cannabis abuse, uncomplicated; F14.10 Cocaine abuse, uncomplicated; Z85.038 Personal history of other malignant neoplasm of large intestine; E11.9 Type 2 diabetes mellitus without complications; R45.1 Restlessness and agitation; F22 Delusional disorders; F32.9 Major depressive disorder, single episode, unspecified; F17.200 Nicotine dependence, unspecified, uncomplicated

== ENCOUNTER 2017-03-20 17:43 | Emergency (ER) | payer MEDICAID ==
[2016-12-04 11:06] VITALS: BMI 28.9
[2017-03-20 18:09] LABS: APPEARANCE CLEAR (CLEAR); BILIRUBIN NEGATIVE (NEGATIVE); COLOR YELLOW (YELLOW); GLUCOSE 100 mg/dL (NEGATIVE); KETONE NEGATIVE (NEGATIVE); LEUKOCYTE ESTERASE NEGATIVE (NEGATIVE); NITRITE NEGATIVE (NEGATIVE); PROTEIN NEGATIVE (NEGATIVE); UROBILINOGEN NORMAL (NORMAL)
[2017-03-20 18:16] LABS: UDS - AMPHET NEGATIVE QUAL (NEGATIVE); UDS - BARB NEGATIVE QUAL (NEGATIVE); UDS - BENZO NEGATIVE QUAL (NEGATIVE); UDS - COCAINE NEGATIVE QUAL (NEGATIVE); UDS - METH NEGATIVE QUAL (NEGATIVE); UDS - OPIATE NEGATIVE QUAL (NEGATIVE); UDS - PCP NEGATIVE QUAL (NEGATIVE); UDS - THC NEGATIVE QUAL (NEGATIVE)
[2017-03-20 18:19] LABS: BASOPHILS 0.3 % (0-2); EOSINOPHILS 0.8 % (0-7); HEMATOCRIT 45.2 % (42.0-54.0); HEMOGLOBIN 17.3 g/dL (13.5-17.5); IMMATURE GRANULOCYTES 0.1 % (0-5); LYMPHOCYTES 37.3 % (15-50); MCH 31.6 pg (26.0-34.0); MCHC 38.3 g/dL (31.0-37.0); MCV 82.6 fL (80.0-100.0); MEAN PLATELET VOLUME 8.8 fL (7.4-10.4); MONOCYTES 10.9 % (2-11); NEUTROPHILS 50.6 % (40-80); PLATELET COUNT 162 10x3/uL (130-400); RBC 5.47 10x6/uL (4.20-6.10); RDW 13.2 % (11.5-14.5); WBC 7.6 10x3/uL (4.8-10.8)
[2017-03-20 18:34] LABS: ALBUMIN 4.4 g/dL (3.4-5.0); ALKALINE PHOSPHATASE 107 U/L (46-116); ALT (SGPT) 45 U/L (10-68); BILIRUBIN - TOTAL 0.43 mg/dL (0.2-1.3); CALCIUM 8.7 mg/dL (8.5-10.1); CARBON DIOXIDE 22.9 mmol/L (21.0-32.0); CREATININE - SERUM 0.9 mg/dL (0.6-1.3); POTASSIUM - SERUM 3.5 mmol/L (3.5-5.1); PROTEIN - SERUM 7.6 g/dL (6.4-8.2); SODIUM 123 mmol/L (136-145); UREA NITROGEN 7 mg/dL (7-18); eGFR NON AFRICAN AMERICAN > 90 mL/min (90-120)
[2017-03-20 18:35] LABS: CALC OSMOLALITY 250 mosm/kg (275-300); GLUCOSE 195 mg/dL (74-106)
[2017-03-20 18:36] LABS: CHLORIDE - SERUM 85 mmol/L (98-107)
[2017-03-20 18:39] LABS: TROPONIN-I < 0.017 ng/mL (0.000-0.060)
== END 2017-03-21 06:00 | disposition short-term general hospital (02) ==
LOC: D.ER 17:43
PROVIDERS: Emergency Medicine; Physician Assistant Medical
DX: F10.10 Alcohol abuse, uncomplicated (principal); R45.851 Suicidal ideations; E11.9 Type 2 diabetes mellitus without complications; I10 Essential (primary) hypertension; R06.00 Dyspnea, unspecified; R11.10 Vomiting, unspecified; F17.200 Nicotine dependence, unspecified, uncomplicated; R00.0 Tachycardia, unspecified

== ENCOUNTER 2017-04-10 15:47 | Emergency (ER) | payer MEDICAID ==
[2016-12-04 11:06] VITALS: BMI 28.9
== END 2017-04-10 20:55 | disposition home or self-care (01) ==
LOC: D.ER 15:47
DX: A08.4 Viral intestinal infection, unspecified (principal); R11.10 Vomiting, unspecified; R19.7 Diarrhea, unspecified; E11.9 Type 2 diabetes mellitus without complications; I10 Essential (primary) hypertension; F17.200 Nicotine dependence, unspecified, uncomplicated

== ENCOUNTER 2017-11-11 21:08 | Emergency (ER) | payer MEDICAID ==
[2016-12-04 11:06] VITALS: BMI 28.9
== END 2017-11-11 22:30 | disposition home or self-care (01) ==
LOC: D.ER 21:08
DX: F10.129 Alcohol abuse with intoxication, unspecified (principal); L08.9 Local infection of the skin and subcutaneous tissue, unspecified; F15.10 Other stimulant abuse, uncomplicated; F17.200 Nicotine dependence, unspecified, uncomplicated

== ENCOUNTER 2018-05-19 01:51 | Observation (INO) | payer MEDICAID ==
[2018-05-19] VITALS (21 sets, daily range): BP systolic 108–172; BP diastolic 77–117; Ht 167.6 cm; Wt 75.6 kg
[~2018-05-19] VITALS: Ht 167.6 cm; Wt 75.6 kg
--- NOTE | ~2018-05-19 | CN ---
PATIENT NAME:CYRUS JAVIER MEDICAL RECORD: [id number] : 67 LOCATION:[facility].2312 ADMIT DATE: 05/19/18 ACCOUNT: [id number] CONSULTING PHYSICIAN: MICHAEL SILVERMAN MD REFERRING PHYSICIAN: ANTONY PASTRANA MD DATE OF CONSULTATION: 05/19/2018 IDENTIFYING DATA: The patient is 53 years old and he was admitted to the hospital secondary to chest pain. While in the Emergency Room, the patient was also found to be drunk and high on methamphetamine. He made some statements about not wanting to live or possibly killing himself. That was late last night. He is now sober, awake, alert, and cooperative. He tells me that he does have a terrible problem with drugs and alcohol. He cannot control himself. He also endorses a lot of depressive symptoms; but says that he would not hurt himself, he was just drunk and upset and was having chest pain and very frustrated. He does express an interest in substance abuse treatment and says that he would be willing to go to inpatient residential treatment. MENTAL STATUS EXAMINATION: The patient is awake; alert; and oriented to person, place, time, and situation. His mood is depressed. His affect is appropriate. Thought processes are goal directed and his memory, concentration, and abstraction abilities are intact. He has no psychotic symptoms and no thoughts of harming himself or others. ASSESSMENT: 1. Polysubstance abuse. 2. Major depression. PLAN: At this time, the patient is not an acute danger to himself or others. Once he is medically stabilized, I recommend transferring him to acute inpatient substance abuse treatment. In the interim, standard protocol for alcohol detox should be undertaken. He has a longstanding problem with drugs and alcohol, and in the past when he has tried to stop drinking on his own, he has had serious DT-type symptoms. He is not acutely dangerous in my view. He did try to hurt himself about 30 years ago with an overdose, but he has had no attempts since then. He is single. He is on social security disability and has a limited support system. Again, I strongly recommend inpatient residential substance abuse treatment with medical detox as part of that and this is something he is interested in and wants to attend. TRANSINT:[id number] Voice Confirmation ID: [id number] DOCUMENT ID: [id number] MICHAEL SILVERMAN MD at 1254 CC: [id number] DICTATION DATE: 05/19/181740 SPIRAL GEAR GENERATOR: 05/19/18 185 ADM IN [facility] [address] [place] [address]
[2018-05-19 02:19] LABS: APPEARANCE CLEAR (CLEAR); BILIRUBIN NEGATIVE (NEGATIVE); COLOR YELLOW (YELLOW); GLUCOSE NEGATIVE (NEGATIVE); KETONE NEGATIVE (NEGATIVE); NITRITE NEGATIVE (NEGATIVE); PROTEIN TRACE mg/dL (NEGATIVE); UROBILINOGEN NORMAL (NORMAL)
[2018-05-19 02:20] LABS: BACTERIA NONE SEEN /hpf (NONE SEEN); EPITHELIAL CELLS 0-5 /hpf (0-5); RED CELLS - URINE 0-5 /hpf (0-5); WHITE CELLS - URINE 0-5 /hpf (0-5)
[2018-05-19 02:22] LABS: UDS - AMPHET POSITIVE QUAL (NEGATIVE); UDS - BARB NEGATIVE QUAL (NEGATIVE); UDS - BENZO NEGATIVE QUAL (NEGATIVE); UDS - COCAINE NEGATIVE QUAL (NEGATIVE); UDS - OPIATE NEGATIVE QUAL (NEGATIVE); UDS - PCP NEGATIVE QUAL (NEGATIVE); UDS - THC NEGATIVE QUAL (NEGATIVE)
[2018-05-19 02:51] LABS: EOSINOPHILS 2.5 % (0-7); HEMATOCRIT 40.5 % (42.0-54.0); HEMOGLOBIN 14.6 g/dL (13.5-17.5); IMMATURE GRANULOCYTES 0.2 % (0-5); LYMPHOCYTES 40.9 % (15-50); MCH 31.9 pg (26.0-34.0); MCV 88.6 fL (80.0-100.0); MEAN PLATELET VOLUME 8.1 fL (7.4-10.4); MONOCYTES 9.6 % (2-11); NEUTROPHILS 45.8 % (40-80); PLATELET COUNT 148 10x3/uL (130-400); RBC 4.57 10x6/uL (4.20-6.10); RDW 14.4 % (11.5-14.5); WBC 4.8 10x3/uL (4.8-10.8)
[2018-05-19 03:06] LABS: ALBUMIN 3.6 g/dL (3.4-5.0); ALKALINE PHOSPHATASE 78 U/L (46-116); ALT (SGPT) 50 U/L (10-68); BILIRUBIN - TOTAL 0.19 mg/dL (0.2-1.3); CALC OSMOLALITY 292 mosm/kg (275-300); CALCIUM 7.7 mg/dL (8.5-10.1); CHLORIDE - SERUM 109 mmol/L (98-107); CREATININE - SERUM 0.8 mg/dL (0.6-1.3); POTASSIUM - SERUM 3.9 mmol/L (3.5-5.1); PROTEIN - SERUM 6.6 g/dL (6.4-8.2); SODIUM 147 mmol/L (136-145); UREA NITROGEN 7 mg/dL (7-18); eGFR NON AFRICAN AMERICAN > 90 mL/min (90-120)
[2018-05-19 03:07] LABS: GLUCOSE 147 mg/dL (74-106)
[2018-05-19 03:29] LABS: CKMB 2.9 U/L (0.0-3.6); CREATINE KINASE 370 UL (21-232); MAGNESIUM - SERUM 2.3 mg/dL (1.8-2.4)
[2018-05-19 03:32] LABS: TROPONIN-I < 0.017 ng/mL (0.000-0.060)
[2018-05-19 09:00] LABS: CKMB 2.2 U/L (0.0-3.6); CREATINE KINASE 318 UL (21-232); TROPONIN-I < 0.017 ng/mL (0.000-0.060)
[2018-05-19 15:41] LABS: CKMB 1.6 U/L (0.0-3.6)
[2018-05-19 15:43] LABS: CREATINE KINASE 237 UL (21-232); TROPONIN-I < 0.017 ng/mL (0.000-0.060)
[2018-05-19 21:22] LABS: CKMB 1.6 U/L (0.0-3.6); CREATINE KINASE 205 UL (21-232); TROPONIN-I < 0.017 ng/mL (0.000-0.060)
[2018-05-20] VITALS (17 sets, daily range): BP systolic 129–157; BP diastolic 80–115
[2018-05-20 04:10] LABS: BASOPHILS 0.5 % (0-2); EOSINOPHILS 1.9 % (0-7); HEMATOCRIT 41.8 % (42.0-54.0); IMMATURE GRANULOCYTES 0.1 % (0-5); LYMPHOCYTES 18.8 % (15-50); MCH 31.8 pg (26.0-34.0); MCHC 35.9 g/dL (31.0-37.0); MCV 88.7 fL (80.0-100.0); MEAN PLATELET VOLUME 8.8 fL (7.4-10.4); MONOCYTES 10.1 % (2-11); NEUTROPHILS 68.6 % (40-80); PLATELET COUNT 148 10x3/uL (130-400); RBC 4.71 10x6/uL (4.20-6.10); RDW 14.1 % (11.5-14.5)
[2018-05-20 04:11] LABS: WBC 7.4 10x3/uL (4.8-10.8)
[2018-05-20 04:26] LABS: ALBUMIN 3.4 g/dL (3.4-5.0); ALKALINE PHOSPHATASE 74 U/L (46-116); ALT (SGPT) 43 U/L (10-68); BILIRUBIN - TOTAL 0.52 mg/dL (0.2-1.3); CALCIUM 8.6 mg/dL (8.5-10.1); CHLORIDE - SERUM 103 mmol/L (98-107); CREATININE - SERUM 0.8 mg/dL (0.6-1.3); GLUCOSE 154 mg/dL (74-106); MAGNESIUM - SERUM 2.1 mg/dL (1.8-2.4); PROTEIN - SERUM 6.4 g/dL (6.4-8.2); SODIUM 138 mmol/L (136-145); eGFR NON AFRICAN AMERICAN > 90 mL/min (90-120)
[2018-05-20 04:29] LABS: CALC OSMOLALITY 278 mosm/kg (275-300); UREA NITROGEN 12 mg/dL (7-18)
== END 2018-05-20 20:47 | disposition home or self-care (01) ==
LOC: D.ER 01:51 → D.ICU 04:35 → OBSVTIME 04:35 → D.ICU 04:35 → D.EDHOLD 04:35 → D.ICU 04:59
PROVIDERS: Family Medicine
DX: I20.9 Angina pectoris, unspecified (principal); F10.129 Alcohol abuse with intoxication, unspecified; F15.10 Other stimulant abuse, uncomplicated; F41.8 Other specified anxiety disorders; E11.65 Type 2 diabetes mellitus with hyperglycemia; I10 Essential (primary) hypertension; F17.200 Nicotine dependence, unspecified, uncomplicated; Z85.048 Personal history of other malignant neoplasm of rectum, rectosigmoid junction, and anus

== ENCOUNTER 2018-07-13 01:45 | Emergency (ER) | payer MEDICAID ==
[~2018-07-13] VITALS: Ht 167.6 cm; Wt 68.2 kg
[2018-07-13 01:50] VITALS: Ht 167.6 cm; Wt 68.2 kg
[2018-07-13 01:58] LABS: APPEARANCE CLEAR (CLEAR); BILIRUBIN NEGATIVE (NEGATIVE); COLOR YELLOW (YELLOW); GLUCOSE NEGATIVE (NEGATIVE); KETONE NEGATIVE (NEGATIVE); NITRITE NEGATIVE (NEGATIVE); PROTEIN NEGATIVE (NEGATIVE); SPECIFIC GRAVITY 1.015 (1.005-1.020); UROBILINOGEN NORMAL (NORMAL)
[2018-07-13 02:04] LABS: UDS - AMPHET POSITIVE QUAL (NEGATIVE); UDS - BARB NEGATIVE QUAL (NEGATIVE); UDS - BENZO NEGATIVE QUAL (NEGATIVE); UDS - COCAINE NEGATIVE QUAL (NEGATIVE); UDS - OPIATE NEGATIVE QUAL (NEGATIVE); UDS - PCP NEGATIVE QUAL (NEGATIVE); UDS - THC NEGATIVE QUAL (NEGATIVE)
[2018-07-13 02:08] LABS: BASOPHILS 0.7 % (0-2); EOSINOPHILS 3.4 % (0-7); HEMATOCRIT 42.5 % (42.0-54.0); HEMOGLOBIN 15.5 g/dL (13.5-17.5); IMMATURE GRANULOCYTES 0.2 % (0-5); LYMPHOCYTES 46.3 % (15-50); MCH 32.5 pg (26.0-34.0); MCHC 36.5 g/dL (31.0-37.0); MCV 89.1 fL (80.0-100.0); MEAN PLATELET VOLUME 8.5 fL (7.4-10.4); MONOCYTES 9.6 % (2-11); NEUTROPHILS 39.8 % (40-80); PLATELET COUNT 127 10x3/uL (130-400); RBC 4.77 10x6/uL (4.20-6.10); RDW 13.3 % (11.5-14.5); WBC 4.1 10x3/uL (4.8-10.8)
[2018-07-13 02:25] LABS: ALBUMIN 3.5 g/dL (3.4-5.0); ALKALINE PHOSPHATASE 72 U/L (46-116); ALT (SGPT) 52 U/L (10-68); BILIRUBIN - TOTAL 0.21 mg/dL (0.2-1.3); CALC OSMOLALITY 284 mosm/kg (275-300); CALCIUM 8.3 mg/dL (8.5-10.1); CARBON DIOXIDE 24.8 mmol/L (21.0-32.0); CHLORIDE - SERUM 107 mmol/L (98-107); CREATININE - SERUM 0.9 mg/dL (0.6-1.3); GLUCOSE 125 mg/dL (74-106); POTASSIUM - SERUM 4.2 mmol/L (3.5-5.1); PROTEIN - SERUM 6.8 g/dL (6.4-8.2); SODIUM 143 mmol/L (136-145); UREA NITROGEN 10 mg/dL (7-18); eGFR NON AFRICAN AMERICAN > 90 mL/min (90-120)
[2018-07-13 02:39] LABS: CKMB 1.2 U/L (0.0-3.6); CREATINE KINASE 120 UL (21-232); MAGNESIUM - SERUM 2.1 mg/dL (1.8-2.4); TROPONIN-I < 0.017 ng/mL (0.000-0.060)
[2018-07-13] MEDS ORDERED: LIBRIUM25 MG PO (06:18)
[2018-07-13 06:43] VITALS: BP 140/78
== END 2018-07-13 06:44 | disposition home or self-care (01) ==
LOC: D.ER 01:45
PROVIDERS: Family Medicine
DX: F10.129 Alcohol abuse with intoxication, unspecified (principal); F10.10 Alcohol abuse, uncomplicated; F19.10 Other psychoactive substance abuse, uncomplicated; F17.200 Nicotine dependence, unspecified, uncomplicated

== ENCOUNTER 2018-08-12 16:58 | Emergency (ER) | payer MEDICAID ==
[~2018-08-12] VITALS: Ht 167.6 cm; Wt 69.1 kg
[~2018-08-12 16:58] MED LIST changes: +LIBRIUM25 MG PO
[2018-08-12 17:02] VITALS: Ht 167.6 cm; Wt 69.1 kg
[2018-08-12 18:00] LABS: BASOPHILS 0.4 % (0-2); EOSINOPHILS 2.8 % (0-7); HEMOGLOBIN 16.6 g/dL (13.5-17.5); LYMPHOCYTES 49.7 % (15-50); MCH 32.7 pg (26.0-34.0); MCHC 36.9 g/dL (31.0-37.0); MCV 88.8 fL (80.0-100.0); MEAN PLATELET VOLUME 8.6 fL (7.4-10.4); MONOCYTES 12.5 % (2-11); NEUTROPHILS 34.6 % (40-80); RBC 5.07 10x6/uL (4.20-6.10); RDW 13.2 % (11.5-14.5); WBC 4.6 10x3/uL (4.8-10.8)
[2018-08-12 18:05] LABS: PLATELET COUNT 161 10x3/uL (130-400)
[2018-08-12 18:14] LABS: ALKALINE PHOSPHATASE 94 U/L (46-116); ALT (SGPT) 49 U/L (10-68); BILIRUBIN - TOTAL 0.23 mg/dL (0.2-1.3); CALC OSMOLALITY 286 mosm/kg (275-300); CALCIUM 8.6 mg/dL (8.5-10.1); CARBON DIOXIDE 25.6 mmol/L (21.0-32.0); CHLORIDE - SERUM 105 mmol/L (98-107); CREATININE - SERUM 0.9 mg/dL (0.6-1.3); GLUCOSE 133 mg/dL (74-106); POTASSIUM - SERUM 4.2 mmol/L (3.5-5.1); PROTEIN - SERUM 7.5 g/dL (6.4-8.2); SODIUM 144 mmol/L (136-145); UREA NITROGEN 6 mg/dL (7-18); eGFR NON AFRICAN AMERICAN > 90 mL/min (90-120)
[2018-08-12 23:40] VITALS: BP 130/87
== END 2018-08-12 23:40 | disposition home or self-care (01) ==
LOC: D.ER 16:58
PROVIDERS: Family Medicine
DX: R51 Headache (principal); F10.129 Alcohol abuse with intoxication, unspecified; R07.81 Pleurodynia; S99.921A Unspecified injury of right foot, initial encounter; Y04.2XXA Assault by strike against or bumped into by another person, initial encounter; Y93.89 Activity, other specified; Y92.89 Other specified places as the place of occurrence of the external cause; E11.9 Type 2 diabetes mellitus without complications; I10 Essential (primary) hypertension; Z85.038 Personal history of other malignant neoplasm of large intestine; Z85.048 Personal history of other malignant neoplasm of rectum, rectosigmoid junction, and anus; F17.200 Nicotine dependence, unspecified, uncomplicated

== ENCOUNTER 2018-12-30 17:33 | Emergency (ER) | payer MEDICAID ==
[~2018-12-30] VITALS: Ht 167.6 cm; Wt 90.9 kg
[2018-12-30 17:41] VITALS: Ht 167.6 cm; Wt 90.9 kg
--- NOTE | 2018-12-30 18:04 | NUR ---
ATTEMPTING TO GET SUICIDE ASSESSMENT BUT PT CONTINUES TO COMPLAIN ABOUT BEING TIRED. HE STATED THAT HE HASN'T SLEPT IN 8 OR 9 DAYS. PT STATED THAT HE DRINKS ALOT ESPECIALLY WHEN HE CAN'T GET ANY METH. PT IS LETHARGIC AND WORDS ARE SLURRED.
--- NOTE | 2018-12-30 18:23 | NUR ---
PT IS A HIGH RISK PER THE ASSESSMENT. PT HAS A HX OF METH USE AND WHEN HE CAN'T GET THAT HE DRINKS MORE PER PT. PT DID MAKE THREATS ABOUT BEATING UP PEOPLE IF HE DOESN'T GET WHAT HE WANTS. ENCOURAGED PT TO CONTROL HIS ANGER AND NOT ACT OUT. PT AGREEABLE TO GO TO A DUAL DIAGNOSIS CENTER WHICH IS WHAT DR. SILVERMAN RECOMMENDS DUE TO HIS DEPRESSION AND DRUG ABUSE. PT IS TEARFUL AND UPSET OVER HIS FRIENDS DIEING OF OVERDOSE OR BEING PLACED IN LONG-TERM. RESOURCES GIVEN AND SAFETY PLAN INITIATED. REPORTED RESULTS TO ATTENDING. 1:1 OBSERVATION ORDERED FOR SAFETY.
[2018-12-30 18:34] LABS: BASOPHILS 0.3 % (0-2); EOSINOPHILS 0.5 % (0-7); HEMATOCRIT 40.2 % (42.0-54.0); HEMOGLOBIN 14.9 g/dL (13.5-17.5); IMMATURE GRANULOCYTES 0.2 % (0-5); LYMPHOCYTES 34.5 % (15-50); MCHC 37.1 g/dL (31.0-37.0); MCV 86.3 fL (80.0-100.0); MEAN PLATELET VOLUME 8.4 fL (7.4-10.4); MONOCYTES 7.8 % (2-11); NEUTROPHILS 56.7 % (40-80); PLATELET COUNT 149 10x3/uL (130-400); RBC 4.66 10x6/uL (4.20-6.10); RDW 13.4 % (11.5-14.5); WBC 6.1 10x3/uL (4.8-10.8)
[2018-12-30 19:17] LABS: ALBUMIN 4.1 g/dL (3.4-5.0); ALKALINE PHOSPHATASE 88 U/L (46-116); ALT (SGPT) 37 U/L (10-68); BILIRUBIN - TOTAL 0.26 mg/dL (0.2-1.3); CALC OSMOLALITY 274 mosm/kg (275-300); CALCIUM 8.8 mg/dL (8.5-10.1); CARBON DIOXIDE 26.2 mmol/L (21.0-32.0); CHLORIDE - SERUM 101 mmol/L (98-107); CREATININE - SERUM 0.9 mg/dL (0.6-1.3); GLUCOSE 143 mg/dL (74-106); POTASSIUM - SERUM 4.4 mmol/L (3.5-5.1); PROTEIN - SERUM 7.2 g/dL (6.4-8.2); SODIUM 138 mmol/L (136-145); UREA NITROGEN 5 mg/dL (7-18); eGFR NON AFRICAN AMERICAN > 90 mL/min (90-120)
[2018-12-30 19:18] LABS: MAGNESIUM - SERUM 2.1 mg/dL (1.8-2.4)
[2018-12-30 20:37] LABS: APPEARANCE CLEAR (CLEAR); BILIRUBIN NEGATIVE (NEGATIVE); COLOR STRAW (YELLOW); GLUCOSE NEGATIVE (NEGATIVE); KETONE NEGATIVE (NEGATIVE); NITRITE NEGATIVE (NEGATIVE); PROTEIN NEGATIVE (NEGATIVE); SPECIFIC GRAVITY 1.005 (1.005-1.020); UROBILINOGEN NORMAL (NORMAL)
[2018-12-30 20:39] LABS: CKMB 2.2 U/L (0.0-3.6); CREATINE KINASE 182 UL (21-232); TROPONIN-I < 0.017 ng/mL (0.000-0.060)
[2018-12-30 20:41] LABS: UDS - AMPHET NEGATIVE QUAL (NEGATIVE); UDS - BARB NEGATIVE QUAL (NEGATIVE); UDS - BENZO NEGATIVE QUAL (NEGATIVE); UDS - COCAINE NEGATIVE QUAL (NEGATIVE); UDS - OPIATE NEGATIVE QUAL (NEGATIVE); UDS - PCP NEGATIVE QUAL (NEGATIVE); UDS - THC NEGATIVE QUAL (NEGATIVE)
[2018-12-31 00:15] LABS: CKMB 1.9 U/L (0.0-3.6); CREATINE KINASE 166 UL (21-232)
[2018-12-31 00:28] LABS: TROPONIN-I < 0.017 ng/mL (0.000-0.060)
[2018-12-31] MEDS ORDERED: LIBRIUM25 MG PO (12:28)
[2018-12-31 12:52] VITALS: BP 169/98
--- NOTE | 2018-12-31 16:19 | NUR ---
PATIENT DISCHARGED HOME PER DOCTOR. 1:1 SITTER DISCHARGED.
== END 2018-12-31 12:54 | disposition home or self-care (01) ==
LOC: D.ER 17:33
PROVIDERS: Family Medicine
DX: R45.851 Suicidal ideations (principal); F10.129 Alcohol abuse with intoxication, unspecified; F19.10 Other psychoactive substance abuse, uncomplicated

== ENCOUNTER 2019-04-07 18:52 | Inpatient (IN) | payer MEDICAID ==
[~2019-04-07] VITALS: Ht 167.6 cm; Wt 68.9 kg
[2019-04-07] VITALS (8 sets, daily range): BP systolic 100–137; BP diastolic 71–96
--- NOTE | 2019-04-07 19:32 | NUR ---
PT STATED THAT HE TOOK 30 KLOPIDINE TABLETS AND XANAX, PATIENT IS VERY MANIC AND ANXIOUS, HALLUCINATING, YELLING AT AND WANTING TO FIGHT WITH HIS HALLUCINATION, 1:1 SUICIDE OBSERVATION, UNABLE TO DO SUICIDE ASSESSMENT AND GET ANY MEANINGFUL ANSEWERS AT THIS TIME, WILL CONTINUE TO MONITOR.
[2019-04-07 19:46] LABS: BASOPHILS 0.9 % (0-2); EOSINOPHILS 2.3 % (0-7); HEMATOCRIT 38.8 % (42.0-54.0); HEMOGLOBIN 14.3 g/dL (13.5-17.5); IMMATURE GRANULOCYTES 0.2 % (0-5); LYMPHOCYTES 41.3 % (15-50); MCH 32.1 pg (26.0-34.0); MCHC 36.9 g/dL (31.0-37.0); MCV 87.2 fL (80.0-100.0); MEAN PLATELET VOLUME 8.8 fL (7.4-10.4); NEUTROPHILS 45.3 % (40-80); PLATELET COUNT 158 10x3/uL (130-400); RBC 4.45 10x6/uL (4.20-6.10); RDW 13.5 % (11.5-14.5); WBC 5.6 10x3/uL (4.8-10.8)
[2019-04-07 19:47] LABS: APPEARANCE CLEAR (CLEAR); BILIRUBIN NEGATIVE (NEGATIVE); COLOR STRAW (YELLOW); GLUCOSE NEGATIVE (NEGATIVE); KETONE NEGATIVE (NEGATIVE); NITRITE NEGATIVE (NEGATIVE); PROTEIN NEGATIVE (NEGATIVE); SPECIFIC GRAVITY 1.015 (1.005-1.020); UROBILINOGEN NORMAL (NORMAL)
[2019-04-07 19:56] LABS: UDS - AMPHET NEGATIVE QUAL (NEGATIVE); UDS - BARB NEGATIVE QUAL (NEGATIVE); UDS - BENZO NEGATIVE QUAL (NEGATIVE); UDS - COCAINE NEGATIVE QUAL (NEGATIVE); UDS - OPIATE NEGATIVE QUAL (NEGATIVE); UDS - PCP NEGATIVE QUAL (NEGATIVE); UDS - THC NEGATIVE QUAL (NEGATIVE)
--- NOTE | 2019-04-07 20:00 | NUR ---
PT PROVIDED WITH TURKEY SANDWICH AND WATER PER REQUEST. NO SIGNS DISTRESS NOTED. WILL CONTINUE TO MONITOR.
[2019-04-07 20:02] LABS: ALKALINE PHOSPHATASE 77 U/L (46-116); ALT (SGPT) 46 U/L (10-68); BILIRUBIN - TOTAL 0.22 mg/dL (0.2-1.3); CALC OSMOLALITY 293 mosm/kg (275-300); CALCIUM 7.8 mg/dL (8.5-10.1); CARBON DIOXIDE 24.4 mmol/L (21.0-32.0); CHLORIDE - SERUM 112 mmol/L (98-107); GLUCOSE 116 mg/dL (74-106); POTASSIUM - SERUM 4.1 mmol/L (3.5-5.1); SODIUM 148 mmol/L (136-145); UREA NITROGEN 9 mg/dL (7-18); eGFR NON AFRICAN AMERICAN 83 mL/min (90-120)
[2019-04-07 20:03] LABS: MAGNESIUM - SERUM 2.2 mg/dL (1.8-2.4)
--- NOTE | 2019-04-07 20:22 | NUR ---
POISON CONTROL CALLED AT THIS TIME.
[2019-04-07 20:58] LABS: CREATINE KINASE 397 UL (21-232)
[2019-04-07 21:01] LABS: CKMB 3.3 U/L (0.0-3.6)
--- NOTE | 2019-04-07 23:33 | NUR ---
PT APPEARS TO BE RESTING WITH EYES CLOSED AT THIS TIME. NO SIGNS DISTRESS NOTED. SNORING RESPIRATIONS. WILL CONTINUE TO MONITOR.
[2019-04-08] VITALS (15 sets, daily range): BP systolic 120–168; BP diastolic 84–107
--- NOTE | 2019-04-08 01:30 | NUR ---
BEDSIDE REPORT FROM KHOI BARNES. PT RESTING EYES CLOSED AT THIS TIME.
--- NOTE | 2019-04-08 02:30 | NUR ---
PT RESTING EYES CLOSED RESP EVEN AND UNLABORED. PT ON MONITOR SITTER AT BEDSIDE.
--- NOTE | 2019-04-08 03:30 | NUR ---
PT LYING IN BED RESP EVEN AND UNLABORED. PT ON SAMPLE PULLER SITTER AT BEDSIDE.
--- NOTE | 2019-04-08 04:30 | NUR ---
PT LYING IN STRECHER GIVEN WATER TO DRINK USING URINAL AT THIS TIME. SITTER AT BEDSIDE.
--- NOTE | 2019-04-08 06:30 | NUR ---
PT INFORMED WE ARE CALLING FOR PLACEMENT. PT DENIES NEEDS AT THIS TIME. SITTER AT BEDSIDE.
--- NOTE | 2019-04-08 08:00 | NUR ---
BREAKFAST TRAY TO PT. PT EATING.
--- NOTE | 2019-04-08 08:05 | NUR ---
PT REQUESTS ET IS GIVEN BEDSIDE COMMODE.
--- NOTE | 2019-04-08 10:41 | NUR ---
DR SILVERMAN NOTIFIED AND SITTER ORDERED. SITTER AT BEDSIDE. NOTIFIED CHARGE NURSE AND ATTENDING IN REGARDS TO ASSESSMENT FINDINGS. RESOURCES GIVEN TO PT AND SAFETY PLAN INITIATED.
--- NOTE | 2019-04-08 11:00 | NUR ---
PACKET FAXED TO CALL CENTER AT THIS TIME.
[2019-04-08 12:04] LABS: AMYLASE - SERUM 42 U/L (25-115); LIPASE 290 U/L (73-393)
--- NOTE | 2019-04-08 12:47 | NUR ---
HAND-OFF REPORT RECEIVED FROM MOLLY HANNAH.
--- NOTE | 2019-04-08 17:27 | NUR ---
REQUESTED UPDATE FROM CALL CENTER. THEY WILL RETURN CALL.
--- NOTE | 2019-04-08 19:15 | NUR ---
RECEIVED CARE OF PT, ASSESSMENT PER FLOWSHEET. PT SLEEPING BUT AROUSES EASILY TO VOICE, ORIENTED X 4, PPP, HR SR ON CM, DENIES ANY PAIN, SUICIDAL, OR HOMICIDAL IDEATIONS AT THIS TIME. DENIES ANY NEEDS, SITTER AT BEDSIDE.
--- NOTE | 2019-04-08 19:20 | NUR ---
PT RESTING QUIETLY WITH EYES CLOSED. RESPIRATIONS EVEN AND UNLABORED. SPOKE TO TRANSFER CENTER- STATES THEY ARE STILL WORKING ON FINDING PATIENT PLACEMENT.
--- NOTE | 2019-04-08 21:38 | NUR ---
PT CON'T TO REST QUIETLY WITH EYES CLOSED. RESPIRATIONS EVEN AND UNLABORED. SITTER AT DOORWAY.
--- NOTE | 2019-04-08 22:45 | NUR ---
PT CON'T TO REST. FSBS CHECKED- 125. PT STATES IS NOT DIABETIC AND ON NO MEDS FOR THIS.
[2019-04-09] VITALS (15 sets, daily range): BP systolic 128–166; BP diastolic 83–114; BMI 26.5
--- NOTE | 2019-04-09 01:26 | NUR ---
PT CON'T TO REST. SPOKE TO TRANSFER CALL CENTER- STATES THEY ARE STILL TRYING TO PLACE PATIENT.
--- NOTE | 2019-04-09 02:19 | NUR ---
CON'T TO REST QUIETLY AND WITH EYES CLOSED.
--- NOTE | 2019-04-09 03:20 | NUR ---
PT CON'T TO REST QUIETLY WITH EYES CLOSED. RESPIRATIONS EVEN AND UNLABORED. SPOKE TO TRANSFER CENTER- STATES THEY ARE STILL WORKING ON PLACEMENT FOR PATIENT.
--- NOTE | 2019-04-09 04:53 | NUR ---
PT VOIDED WITH NO PROBLEM, 800 CC'S. PT LAYING BACK DOWN. SITTER AT BEDSIDE.
--- NOTE | 2019-04-09 05:57 | NUR ---
SPOKE TO [facility]- [facility] WILL CALL US BACK.
--- NOTE | 2019-04-09 08:25 | NUR ---
PT HAVING TREMORS DR. CHOUDHARY NOTIFIED. ORDERS RECEIVED AND CARRIED OUT. WILL CONT. TO MONITOR.
--- NOTE | 2019-04-09 09:11 | NUR ---
PT TO BE AN ADMIT TO ICU FOR ALCOHOL WITHDRAWAL. IV SITE PATENT. VITAL SIGNS STABLE.
--- NOTE | 2019-04-09 10:01 | NUR ---
BANANA BAG IN PT GONZALO. WELL. NS AT 125/HR GOING
--- NOTE | 2019-04-09 11:05 | NUR ---
REC'D PT TO ICU. ALL MONITORING EQUIPMENT ATTACHED. PT C/O TREMBLING INSIDE. ATIVAN GIVEN. SITTER AT BS. DENIES SI AT PRESENT TIME.
--- NOTE | 2019-04-09 17:11 | NUR ---
PT SITTIN ON SIDE OF BED EATING DINNER. VOIDS USING URINAL. DENIES C/O AT PRESENT. ATIVAN GIVEN PRN PT HAS C/O FEELING SHAKEY AND REPORTS THAT HE FEARS DT'S.
--- NOTE | 2019-04-09 21:30 | NUR ---
PT RESTING IN BED WITH EYES CLOSED, VSS, CONT TO MONITOR, SITTER AT BEDSIDE.
--- NOTE | 2019-04-09 22:10 | NUR ---
SANDWICH TRAY PROVIDED PER PT REQUEST.
--- NOTE | 2019-04-09 23:15 | NUR ---
REASSESSMENT PER FLOWSHEET, NO ACUTE CHANGES NOTED, VSS. SITTER AT BEDSIDE.
[2019-04-10] VITALS (23 sets, daily range): BP systolic 104–163; BP diastolic 68–107
--- NOTE | 2019-04-10 01:50 | NUR ---
PT RESTING IN BED WITH EYES CLOSED, BREATHING EVEN AND UNLABORED, SITTER AT BEDSIDE, CONT POC.
--- NOTE | 2019-04-10 03:34 | NUR ---
PRN ATIVAN 1 MG ADMINISTERED PER PRN MD ORDER/PT REQUEST REGARDING "FEELING REALLY BAD AND NERVOUS."
--- NOTE | 2019-04-10 05:00 | NUR ---
AHMET NURSE FROM [facility] IN TO RE-EVAL PT.
[2019-04-10 05:39] LABS: BASOPHILS 0.7 % (0-2); EOSINOPHILS 2.4 % (0-7); HEMATOCRIT 35.3 % (42.0-54.0); HEMOGLOBIN 12.7 g/dL (13.5-17.5); IMMATURE GRANULOCYTES 0.2 % (0-5); LYMPHOCYTES 30.5 % (15-50); MCH 31.2 pg (26.0-34.0); MCV 86.7 fL (80.0-100.0); MEAN PLATELET VOLUME 8.8 fL (7.4-10.4); MONOCYTES 12.2 % (2-11); PLATELET COUNT 130 10x3/uL (130-400); RBC 4.07 10x6/uL (4.20-6.10); RDW 13.3 % (11.5-14.5); WBC 4.6 10x3/uL (4.8-10.8)
[2019-04-10 06:20] LABS: ALBUMIN 2.8 g/dL (3.4-5.0); ALKALINE PHOSPHATASE 59 U/L (46-116); ALT (SGPT) 26 U/L (10-68); BILIRUBIN - TOTAL 0.33 mg/dL (0.2-1.3); CALC OSMOLALITY 288 mosm/kg (275-300); CARBON DIOXIDE 24.4 mmol/L (21.0-32.0); CHLORIDE - SERUM 111 mmol/L (98-107); CREATININE - SERUM 0.8 mg/dL (0.6-1.3); GLUCOSE 161 mg/dL (74-106); POTASSIUM - SERUM 3.6 mmol/L (3.5-5.1); SODIUM 143 mmol/L (136-145); UREA NITROGEN 15 mg/dL (7-18); eGFR NON AFRICAN AMERICAN > 90 mL/min (90-120)
[2019-04-10 06:35] LABS: CALCIUM 6.8 mg/dL (8.5-10.1)
--- NOTE | 2019-04-10 07:37 | NUR ---
PT C/O FEELING AGGITATED AND IS ASKING FOR ATIVAN. STATES THAT HE WANTS TO RIP OFF ALL THIS MONITORING EQUIPMENT. ATIVAN GIVEN AND BREAKFAST TRAY GIVEN. PT EATING BREAKFAST WITH OUT PROBLEMS.
--- NOTE | 2019-04-10 10:34 | NUR ---
PT AWAKENS AND IS ASKING WHY DO THEY KEEP COMMING IN HERE AND DOING THINGS TO ME, BEATING ME UP. REORIENTS WELL. CALM.
--- NOTE | 2019-04-10 17:14 | NUR ---
PT FREQUENTLY AGGITATED AND INAPPROPRIATE AND IS GETTING MAD AND STATES THERE IS A CONSPIRACY. ATIVAN GIVEN FREQUENTLY.
--- NOTE | 2019-04-10 19:45 | NUR ---
PATIENT BECOMING AGITATED AND REQUESTING SOMETING TO "HELP HIM SLEEP" PATIENT DEMANDING, DEMANDING FOOD AND DRINK. SANDWICH TRAY PROVIDED, WATER PROVIDED AND PRN MEDICATIONS GIVEN. PATIENT REPOSITIONED IN BED. VSS. SITTER AT BEDSIDE.
--- NOTE | 2019-04-10 22:00 | NUR ---
PATIENT RESTING QUIETLY. VSS. SITTER AT BEDSIDE.
[2019-04-11] VITALS (13 sets, daily range): BP systolic 124–165; BP diastolic 75–111; Ht 167.6 cm; Wt 68.9 kg
--- NOTE | 2019-04-11 | NUR ---
PATENT RESTING QUIETLY, NO DISTRESS NOTED. VSS. SITTER AT BEDSIDE.
--- NOTE | 2019-04-11 02:00 | NUR ---
PATIENT RESTING QUIETLY, NO DISTRESS NOTED. VSS. SITTER AT BEDSIDE.
[2019-04-11 03:53] LABS: BASOPHILS 0.6 % (0-2); EOSINOPHILS 2.7 % (0-7); HEMATOCRIT 35.7 % (42.0-54.0); IMMATURE GRANULOCYTES 0.2 % (0-5); LYMPHOCYTES 30.7 % (15-50); MCH 31.7 pg (26.0-34.0); MCHC 36.4 g/dL (31.0-37.0); MCV 87.1 fL (80.0-100.0); MEAN PLATELET VOLUME 8.7 fL (7.4-10.4); MONOCYTES 9.4 % (2-11); NEUTROPHILS 56.4 % (40-80); PLATELET COUNT 129 10x3/uL (130-400); RDW 13.6 % (11.5-14.5); WBC 5.2 10x3/uL (4.8-10.8)
[2019-04-11 04:09] LABS: ALBUMIN 2.9 g/dL (3.4-5.0); ALKALINE PHOSPHATASE 56 U/L (46-116); ALT (SGPT) 27 U/L (10-68); BILIRUBIN - TOTAL 0.16 mg/dL (0.2-1.3); CALC OSMOLALITY 288 mosm/kg (275-300); CALCIUM 8.1 mg/dL (8.5-10.1); CARBON DIOXIDE 28.2 mmol/L (21.0-32.0); CHLORIDE - SERUM 109 mmol/L (98-107); CREATININE - SERUM 0.8 mg/dL (0.6-1.3); GLUCOSE 146 mg/dL (74-106); PROTEIN - SERUM 5.4 g/dL (6.4-8.2); SODIUM 143 mmol/L (136-145); UREA NITROGEN 14 mg/dL (7-18); eGFR NON AFRICAN AMERICAN > 90 mL/min (90-120)
--- NOTE | 2019-04-11 06:15 | NUR ---
PATIENT STATED HE WAS NOT GOING TO HARM HIMSELF, GOT UP AND BEGAN RIPPING MONITOR LEADS AND IV OUT. DRESSING APPLIED TO SITE. NO BLEEDING NOTED. NEW IV STARTED IN LT WRIST, 20 GAUGE AND FLUIDS CONTINUED AT 125ML/HR. PATIENT ARGUMENTATIVE AND SHOUTING PROFANITIES. PATIENT STATED HE GOT "SOMETHING IN HIS EYE" GARO RN AT BEDSIDE FLUSHED LT EYE OUT. PATIENT TOLERATED WELL.
--- NOTE | 2019-04-11 07:40 | NUR ---
REPORT RECEIVED. PT ON SUICIDE PRECAUTIONS. AWAKE AND SITTING UP IN BED WATCHING TV. IV TO LEFT WRIST WITH NS @ 125ML/HR. GEODON AND ATIVAN ORDERED PRN. PT COMPLAINS OF PAIN IN LEFT EYE.
--- NOTE | 2019-04-11 09:28 | NUR ---
PT STATED HE DIDN'T TAKE BP MEDICATION. THE EMAR SHOWS HE HAS BEEN GETTING IT. HIS BLOOD PRESSURE IS ELEVATED. EDUCATED PT ON WHY HE NEEDED IT. PT TOOK. WILL CONTINUE TO MONITOR.
--- NOTE | 2019-04-11 11:15 | NUR ---
PT SITTING IN BED. REASSESSMENT PERFORMED. BP ELEVATED. WILL CONTINUE TO MONITOR.
--- NOTE | 2019-04-11 12:15 | NUR ---
DR SPENCER IN ROOM ASSESSING PT.
--- NOTE | 2019-04-11 13:00 | NUR ---
dr mccain fine to discharge pt to home once medically cleared by yossi riley.
--- NOTE | 2019-04-11 14:11 | NUR ---
orders rec'd to discharge pt to home, discharge instructions provided, linux network administrator from pts living facility notified for transportation. pt ambulatory, pt wishes to walk self to front of facility and wait for ride. no signs/symptoms of pain or discomfort. no further actions taken at this time.
--- NOTE | 2019-04-11 21:41 | MORECARE ---
CASE MANAGEMENT DISCHARGE SUMMARY PATIENT: CYRUS JAVIER UNIT: [id number] ADM DATE: 04/09/19 AGE: 54 : 67 SEX: M ROOM/BED: D.2309 AUTHOR: MARIBELL BERNARDO PHYSICIAN: REFERRING PHYSICIAN: BRAIN ADKINS MD DATE OF SERVICE: 04/11/19 Discharge Plan Patient Name: CYRUS JAVIER [facility] [facility] 1965 Planned Disposition: Assisted Living Anticipated Discharge Date: Discharge Date: 04/11/2019 Expected LOS: Initial Reviewer: [email or web address] Initial Review Date: 04/11/2019 Generated: 04/11/19 10:41 pm Patient Name: CYRUS JAVIER Page [id number] at 2141 All edits/amendments must be made on the electronic document DICTATION DATE: 04/11/192139 FINAL ASSEMBLY AND PACKING SUPERVISOR: RODRÍGUEZ 04/11/192139 RPT#: [id number] PR DATE:04/11/19 STATUS: DIS IN [facility] [address] [place] [address] END OF REPORT
--- NOTE | 2019-04-11 21:47 | MORECARE ---
CASE MANAGEMENT DISCHARGE SUMMARY PATIENT: CYRUS JAVIER UNIT: [id number] ADM DATE: 04/09/19 AGE: 54 : 67 SEX: M ROOM/BED: D.2309 AUTHOR: MARIBELL BERNARDO PHYSICIAN: REFERRING PHYSICIAN: BRAIN ADKINS MD DATE OF SERVICE: 04/11/19 Discharge Plan Patient Name: CYRUS JAVIER [facility] [facility] 1965 Planned Disposition: Assisted Living Anticipated Discharge Date: Discharge Date: 04/11/2019 Expected LOS: Initial Reviewer: [email or web address] Initial Review Date: 04/11/2019 Generated: 04/11/19 10:47 pm DCPIA - Discharge Planning Initial Assessment Updated by [email or web address]: Ankita Marcos on 04/11/19 9:42 pm * Is the patient Alert and Oriented? Yes * How many steps to enter\exit or inside your home? * [facility] * Preadmission Environment Home Alone * ADLs Independent * Equipment None * List name and contact numbers for known caregivers / representatives who currently or will assist patient after discharge: GABINO SETHAMRITA - [phone] * Verbal permission to speak to the caregivers and representatives has been obtained from the patient. N/A * Community resources currently utilized None * Additional services required to return to the preadmission environment? No * Can the patient safely return to the preadmission environment? Yes * Has this patient been hospitalized within the prior 30 days at any hospital? No Last DP export: 04/11/19 8:41 p Patient Name: CYRUS JAVIER Page 38858 at 2147 All edits/amendments must be made on the electronic document DICTATION DATE: 04/11/192146 ASSEMBLER FINGER BUFFS: RODRÍGUEZ 04/11/192146 RPT#: [id number] DC DATE:04/11/19 STATUS: DIS IN [facility] [address] [place] [address] END OF REPORT
--- NOTE | 2019-04-12 08:45 | MORECARE ---
CASE MANAGEMENT DISCHARGE SUMMARY PATIENT: CYRUS JAVIER UNIT: [id number] ADM DATE: 04/09/19 AGE: 54 : 67 SEX: M ROOM/BED: D.2309 AUTHOR: MARIBELL BERNARDO PHYSICIAN: REFERRING PHYSICIAN: BRAIN ADKINS MD DATE OF SERVICE: 04/12/19 Discharge Plan Patient Name: CYRUS JAVIER Facility: [facility]:[place] : 1965 Planned Disposition: Assisted Living Anticipated Discharge Date: Discharge Date: 04/11/2019 Expected LOS: Initial Reviewer: [email or web address] Initial Review Date: 04/11/2019 Generated: 04/12/19 9:45 am Comments DCP- Discharge Planning Updated by [id number]: Ankita Marcos on 04/11/19 8:[address] LATE ENTRY 1200 Patient Name: CYRUS JAVIER Admission Status: ER Accout number: [id number] Admission Date: 04-09-2019 : 1965 Admission Diagnosis:SUICIDAL IDEATIONS Attending: BRAIN WEBER Current LOS: 2 Anticipated DC Date: Planned Disposition: Assisted Living Primary Insurance: MEDICAID [place] Discharge Planning Comments: CM met with patient at bedside after explaining CM role and obtaining verbal consent. Patient lives at home alone @ [facility] [phone] where he is independent with his care and plans to return there upon discharge. Patient feels this would be a safe discharge. CM discussed availability / needs of home health and medical equipment. Patient denies any discharge needs at this time. Patient will have residential care facility drive him home upon discharge. CM will continue to follow and assist as needed with discharge planning / needs. Sap Pi Developer: Ankita Marcos DCPIA - Discharge Planning Initial Assessment Updated by [email or web address]: Ankita Marcos on 04/11/19 9:42 pm * Is the patient Alert and Oriented? Yes * How many steps to enter\exit or inside your home? * [facility] * Preadmission Environment Home Alone * ADLs Independent * Equipment None * List name and contact numbers for known caregivers / representatives who currently or will assist patient after discharge: [facility] [phone] * Verbal permission to speak to the caregivers and representatives has been obtained from the patient. N/A * Community resources currently utilized None * Additional services required to return to the preadmission environment? No * Can the patient safely return to the preadmission environment? Yes * Has this patient been hospitalized within the prior 30 days at any hospital? No Last DP export: 04/11/19 8:47 p Patient Name: CYRUS JAVIER Page 29710 at 0845 All edits/amendments must be made on the electronic document DICTATION DATE: 04/12/19844 ASSISTANT FACILITY MANAGER: RODRÍGUEZ 04/12/1944 RPT#: [id number] DC DATE:04/11/19 STATUS: DIS IN [facility] [address] [place] [address] END OF REPORT
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
== END 2019-04-11 13:55 | disposition home or self-care (01) | DRG 897 ==
LOC: D.ER 18:52 → D.ICU 04-09 10:07
PROVIDERS: Emergency Medicine; Family Medicine; ADMIT Family Medicine; ATTEND Family Medicine
DX: F10.121 Alcohol abuse with intoxication delirium (principal); R45.851 Suicidal ideations; F17.200 Nicotine dependence, unspecified, uncomplicated; F15.10 Other stimulant abuse, uncomplicated; Z85.038 Personal history of other malignant neoplasm of large intestine; F32.9 Major depressive disorder, single episode, unspecified

== ENCOUNTER 2019-07-02 21:59 | Emergency (ER) | payer MEDICAID ==
[~2019-07-02] VITALS: Ht 167.6 cm; Wt 81.8 kg
[2019-07-02 22:03] VITALS: Ht 167.6 cm; Wt 81.8 kg
[2019-07-02 22:42] LABS: BASOPHILS 0.3 % (0-2); HEMATOCRIT 42.5 % (42.0-54.0); IMMATURE GRANULOCYTES 0.6 % (0-5); LYMPHOCYTES 34.7 % (15-50); MCH 31.3 pg (26.0-34.0); MCHC 35.3 g/dL (31.0-37.0); MCV 88.7 fL (80.0-100.0); MEAN PLATELET VOLUME 8.6 fL (7.4-10.4); MONOCYTES 8.4 % (2-11); PLATELET COUNT 182 10x3/uL (130-400); RBC 4.79 10x6/uL (4.20-6.10); RDW 13.8 % (11.5-14.5); WBC 6.3 10x3/uL (4.8-10.8)
[2019-07-02 22:52] LABS: CALC OSMOLALITY 297 mosm/kg (275-300); CALCIUM 8.6 mg/dL (8.5-10.1); CARBON DIOXIDE 23.8 mmol/L (21.0-32.0); CHLORIDE - SERUM 111 mmol/L (98-107); CREATININE - SERUM 1.2 mg/dL (0.6-1.3); GLUCOSE 172 mg/dL (74-106); POTASSIUM - SERUM 4.3 mmol/L (3.5-5.1); SODIUM 147 mmol/L (136-145); UREA NITROGEN 19 mg/dL (7-18); eGFR NON AFRICAN AMERICAN 67 mL/min (90-120)
[2019-07-02 23:01] LABS: APPEARANCE CLEAR (CLEAR); BILIRUBIN NEGATIVE (NEGATIVE); COLOR YELLOW (YELLOW); GLUCOSE NEGATIVE (NEGATIVE); KETONE SMALL mg/dL (NEGATIVE); NITRITE NEGATIVE (NEGATIVE); PROTEIN NEGATIVE (NEGATIVE); SPECIFIC GRAVITY 1.015 (1.005-1.020); UROBILINOGEN NORMAL (NORMAL)
[2019-07-02 23:07] LABS: ALBUMIN 3.8 g/dL (3.4-5.0); ALKALINE PHOSPHATASE 70 U/L (46-116); ALT (SGPT) 39 U/L (10-68); BILIRUBIN - TOTAL 0.24 mg/dL (0.2-1.3); CREATINE KINASE 220 UL (21-232); PROTEIN - SERUM 6.8 g/dL (6.4-8.2)
[2019-07-02 23:08] LABS: TROPONIN-I < 0.017 ng/mL (0.000-0.060)
[2019-07-02 23:17] LABS: UDS - AMPHET NEGATIVE QUAL (NEGATIVE); UDS - BARB NEGATIVE QUAL (NEGATIVE); UDS - BENZO NEGATIVE QUAL (NEGATIVE); UDS - COCAINE NEGATIVE QUAL (NEGATIVE); UDS - OPIATE NEGATIVE QUAL (NEGATIVE); UDS - PCP NEGATIVE QUAL (NEGATIVE); UDS - THC NEGATIVE QUAL (NEGATIVE)
[2019-07-03 06:02] VITALS: BP 112/71
== END 2019-07-03 06:03 | disposition home or self-care (01) ==
LOC: D.ER 21:59
PROVIDERS: Emergency Medicine
DX: F10.129 Alcohol abuse with intoxication, unspecified (principal); F20.0 Paranoid schizophrenia; F17.210 Nicotine dependence, cigarettes, uncomplicated

== ENCOUNTER 2019-09-20 19:58 | Emergency (ER) | payer MEDICAID ==
[~2019-09-20] VITALS: Ht 167.6 cm; Wt 71.8 kg
[2019-09-20 20:03] VITALS: Ht 167.6 cm; Wt 71.8 kg
[2019-09-20 20:45] LABS: EOSINOPHILS 0.2 % (0-7); HEMATOCRIT 39.4 % (42.0-54.0); HEMOGLOBIN 13.8 g/dL (13.5-17.5); IMMATURE GRANULOCYTES 0.2 % (0-5); LYMPHOCYTES 46.8 % (15-50); MCH 30.7 pg (26.0-34.0); MCV 87.6 fL (80.0-100.0); MEAN PLATELET VOLUME 8.2 fL (7.4-10.4); MONOCYTES 9.2 % (2-11); NEUTROPHILS 42.6 % (40-80); RDW 13.8 % (11.5-14.5); WBC 4.9 10x3/uL (4.8-10.8)
[2019-09-20 20:47] LABS: PLATELET COUNT 133 10x3/uL (130-400)
[2019-09-20 20:54] LABS: APTT 25.7 SECONDS (22.8-39.4); INR 0.97 (0.85-1.17); PROTIME 12.9 SECONDS (11.6-15.0)
[2019-09-20 21:00] LABS: CALC OSMOLALITY 291 mosm/kg (275-300); CALCIUM 7.7 mg/dL (8.5-10.1); CHLORIDE - SERUM 108 mmol/L (98-107); CREATININE - SERUM 0.9 mg/dL (0.6-1.3); GLUCOSE 178 mg/dL (74-106); POTASSIUM - SERUM 4.1 mmol/L (3.5-5.1); SODIUM 144 mmol/L (136-145); UREA NITROGEN 15 mg/dL (7-18); eGFR NON AFRICAN AMERICAN > 90 mL/min (90-120)
[2019-09-20 21:15] LABS: ALBUMIN 4.1 g/dL (3.4-5.0); ALKALINE PHOSPHATASE 82 U/L (30-120); ALT (SGPT) 191 U/L (10-68); BILIRUBIN - TOTAL 0.23 mg/dL (0.2-1.3); CKMB 1.4 U/L (0.0-3.6); CREATINE KINASE 381 UL (21-232); MAGNESIUM - SERUM 2.2 mg/dL (1.8-2.4); PROTEIN - SERUM 6.6 g/dL (6.4-8.2)
[2019-09-20 21:19] LABS: TROPONIN-I < 0.017 ng/mL (0.000-0.060)
[2019-09-20] MEDS ORDERED: CALCIUM 500 +1 EAC3 PO (21:58)
[2019-09-20 22:46] LABS: BILIRUBIN NEGATIVE (NEGATIVE); GLUCOSE 50 mg/dL (NEGATIVE); KETONE NEGATIVE (NEGATIVE); NITRITE NEGATIVE (NEGATIVE); SPECIFIC GRAVITY 1.015 (1.005-1.020); UROBILINOGEN NORMAL (NORMAL)
--- NOTE | 2019-09-21 00:45 | NUR ---
DR. SILVERMAN NOTIFIED AND SITTER ORDERED. SITTER AT BEDSIDE NOTIFIED CHARGE NURSE AND ATTENDING IN REGARDS TO ASSESSMENT FINDINGS. RESOURCES GIVEN TO PT AND SAFETY PLAN INITATED.
[2019-09-21 01:58] LABS: UDS - AMPHET NEGATIVE QUAL (NEGATIVE); UDS - BARB NEGATIVE QUAL (NEGATIVE); UDS - BENZO POSITIVE QUAL (NEGATIVE); UDS - COCAINE NEGATIVE QUAL (NEGATIVE); UDS - OPIATE NEGATIVE QUAL (NEGATIVE); UDS - PCP NEGATIVE QUAL (NEGATIVE); UDS - THC POSITIVE QUAL (NEGATIVE)
--- NOTE | 2019-09-21 04:11 | NUR ---
PT BLOOD ALCOHOL LEVEL 256. HE IS IN THE BEHAVIORAL POD ON [address]. SNORING LOUDLY. WILL REASSES WHEN BLOOD ALCOHOL LEVEL IS UNDER 100. NOTIFIED CHARGE NURSE AND MY CHARGE NURSE SCOTTIE MCLEAN RN.
--- NOTE | 2019-09-21 12:15 | NUR ---
DR SILVERMAN NOTIFIED AND REVIEWED PT'S BEHAVIOR AND ASSESSMENT RESULTS. PT IS A HIGH RISK. SITTER ORDERED AND AT BEDSIDE. SAFETY PLAN INITIATED. RESOURCES GIVEN AND HE VERBALIZES UNDERSTANDING.
[2019-09-21 23:40] VITALS: BP 129/76
== END 2019-09-21 23:45 | disposition home or self-care (01) ==
LOC: D.ER 19:58
PROVIDERS: Family Medicine
DX: E83.51 Hypocalcemia (principal); E11.9 Type 2 diabetes mellitus without complications; I10 Essential (primary) hypertension; Z72.0 Tobacco use; R07.9 Chest pain, unspecified; M79.606 Pain in leg, unspecified; Y09 Assault by unspecified means

== ENCOUNTER 2019-10-25 12:34 | Emergency (ER) | payer MEDICAID ==
[~2019-10-25] VITALS: Ht 167.6 cm; Wt 77.8 kg
[~2019-10-25 12:34] MED LIST changes: +CALCIUM 500 +1 EAC3 PO
[2019-10-25 12:45] VITALS: Ht 167.6 cm; Wt 77.8 kg
[2019-10-25 13:25] LABS: BASOPHILS 0.6 % (0-2); EOSINOPHILS 1.3 % (0-7); HEMATOCRIT 40.9 % (42.0-54.0); HEMOGLOBIN 14.2 g/dL (13.5-17.5); IMMATURE GRANULOCYTES 0.3 % (0-5); LYMPHOCYTES 25.1 % (15-50); MCH 30.9 pg (26.0-34.0); MCHC 34.7 g/dL (31.0-37.0); MCV 89.1 fL (80.0-100.0); MEAN PLATELET VOLUME 8.7 fL (7.4-10.4); MONOCYTES 8.5 % (2-11); NEUTROPHILS 64.2 % (40-80); RBC 4.59 10x6/uL (4.20-6.10); RDW 14.1 % (11.5-14.5); WBC 8.9 10x3/uL (4.8-10.8)
[2019-10-25 13:26] LABS: PLATELET COUNT 164 10x3/uL (130-400)
[2019-10-25 13:34] LABS: BILIRUBIN NEGATIVE (NEGATIVE); GLUCOSE 50 mg/dL (NEGATIVE); KETONE NEGATIVE (NEGATIVE); NITRITE NEGATIVE (NEGATIVE); SPECIFIC GRAVITY 1.005 (1.005-1.020); UROBILINOGEN NORMAL (NORMAL)
[2019-10-25 13:36] LABS: CALC OSMOLALITY 278 mosm/kg (275-300); CALCIUM 8.5 mg/dL (8.5-10.1); CARBON DIOXIDE 23.8 mmol/L (21.0-32.0); CHLORIDE - SERUM 105 mmol/L (98-107); CREATININE - SERUM 0.8 mg/dL (0.6-1.3); GLUCOSE 144 mg/dL (74-106); POTASSIUM - SERUM 3.8 mmol/L (3.5-5.1); SODIUM 140 mmol/L (136-145); UREA NITROGEN 5 mg/dL (7-18); eGFR NON AFRICAN AMERICAN > 90 mL/min (90-120)
[2019-10-25 13:41] LABS: ALBUMIN 3.8 g/dL (3.4-5.0); ALKALINE PHOSPHATASE 109 U/L (30-120); ALT (SGPT) 24 U/L (10-68); BILIRUBIN - TOTAL 0.23 mg/dL (0.2-1.3); PROTEIN - SERUM 6.7 g/dL (6.4-8.2)
[2019-10-25 14:04] LABS: UDS - AMPHET NEGATIVE QUAL (NEGATIVE); UDS - BARB NEGATIVE QUAL (NEGATIVE); UDS - BENZO NEGATIVE QUAL (NEGATIVE); UDS - COCAINE NEGATIVE QUAL (NEGATIVE); UDS - OPIATE NEGATIVE QUAL (NEGATIVE); UDS - PCP NEGATIVE QUAL (NEGATIVE); UDS - THC NEGATIVE QUAL (NEGATIVE)
--- NOTE | 2019-10-25 15:46 | NUR ---
DR SILVERMAN NOTIFIED AND REVIEWED PT'S BEHAVIOR AND ASSESSMENT RESULTS. PT IS A HIGH RISK. SITTER ORDERED AND AT BEDSIDE. RESOURCES GIVEN. PATIENT REFUSED TO COMPLETE SAFETY PLAN.
[2019-10-26 03:20] VITALS: BP 163/97
== END 2019-10-26 03:42 ==
LOC: D.ER 12:34
PROVIDERS: Family Medicine
DX: F10.129 Alcohol abuse with intoxication, unspecified (principal); Y90.8 Blood alcohol level of 240 mg/100 ml or more; R45.851 Suicidal ideations; E11.9 Type 2 diabetes mellitus without complications; I10 Essential (primary) hypertension; Z72.0 Tobacco use

== ENCOUNTER 2019-12-06 11:17 | Emergency (ER) | payer MEDICAID ==
[~2019-12-06] VITALS: Ht 167.6 cm; Wt 100.0 kg
[2019-12-06 11:31] VITALS: Ht 167.6 cm; Wt 100.0 kg
[2019-12-06 11:56] LABS: BASOPHILS 1.2 % (0-2); EOSINOPHILS 1.8 % (0-7); HEMATOCRIT 41.3 % (42.0-54.0); HEMOGLOBIN 14.2 g/dL (13.5-17.5); IMMATURE GRANULOCYTES 0.2 % (0-5); LYMPHOCYTES 40.4 % (15-50); MCH 29.8 pg (26.0-34.0); MCHC 34.4 g/dL (31.0-37.0); MCV 86.8 fL (80.0-100.0); MEAN PLATELET VOLUME 8.6 fL (7.4-10.4); MONOCYTES 8.1 % (2-11); NEUTROPHILS 48.3 % (40-80); RBC 4.76 10x6/uL (4.20-6.10); RDW 13.5 % (11.5-14.5); WBC 5.7 10x3/uL (4.8-10.8)
[2019-12-06 12:09] LABS: CALC OSMOLALITY 286 mosm/kg (275-300); CALCIUM 8.1 mg/dL (8.5-10.1); CARBON DIOXIDE 27.3 mmol/L (21.0-32.0); CHLORIDE - SERUM 105 mmol/L (98-107); CREATININE - SERUM 0.9 mg/dL (0.6-1.3); GLUCOSE 242 mg/dL (74-106); POTASSIUM - SERUM 4.4 mmol/L (3.5-5.1); SODIUM 141 mmol/L (136-145); UREA NITROGEN 8 mg/dL (7-18); eGFR NON AFRICAN AMERICAN > 90 mL/min (90-120)
[2019-12-06 12:20] LABS: ALBUMIN 4.2 g/dL (3.4-5.0); ALKALINE PHOSPHATASE 91 U/L (30-120); ALT (SGPT) 70 U/L (10-68); AMYLASE - SERUM 34 U/L (25-115); BILIRUBIN - TOTAL 0.43 mg/dL (0.2-1.3); LIPASE 180 U/L (73-393); PLATELET COUNT 127 10x3/uL (130-400); PROTEIN - SERUM 7.1 g/dL (6.4-8.2)
[2019-12-06 12:22] LABS: TROPONIN-I < 0.017 ng/mL (0.000-0.060)
[2019-12-06 13:28] LABS: UDS - AMPHET NEGATIVE QUAL (NEGATIVE); UDS - BARB NEGATIVE QUAL (NEGATIVE); UDS - BENZO POSITIVE QUAL (NEGATIVE); UDS - COCAINE NEGATIVE QUAL (NEGATIVE); UDS - OPIATE NEGATIVE QUAL (NEGATIVE); UDS - PCP NEGATIVE QUAL (NEGATIVE); UDS - THC NEGATIVE QUAL (NEGATIVE)
[2019-12-06 13:36] LABS: BILIRUBIN NEGATIVE (NEGATIVE); GLUCOSE 1000 mg/dL (NEGATIVE); KETONE NEGATIVE (NEGATIVE); NITRITE NEGATIVE (NEGATIVE); SPECIFIC GRAVITY 1.015 (1.005-1.020); UROBILINOGEN NORMAL (NORMAL)
[2019-12-06 13:37] LABS: BACTERIA FEW /hpf (NEGATIVE); EPITHELIAL CELLS OCC /hpf (0-5); RED CELLS - URINE OCC /hpf (0-5); WHITE CELLS - URINE RARE /hpf (NEGATIVE)
--- NOTE | 2019-12-06 19:34 | NUR ---
ATTEMPTED TO ASSESS PATIENT FOR SI. ALCOHOL STILL AT 265. EXPLAINED TO NURSE WHEN PATIENT IS LESS THAN 100 TO CALL PSYCH AND WE WILL ASSESS PATIENT FOR SI.
--- NOTE | 2019-12-07 05:33 | NUR ---
DR SILVERMAN NOTIFIEDAND SITTER ORDERED. SITTER AT BEDSIDE. NOTIFIED CHARGE NURSE AND ATTENDING IN REGARDS TO ASSESSMENT FINDINGS. RESOURCES GIVEN TO PT AND SAFETY PLAN INITIATED.
[2019-12-07 06:35] VITALS: BP 138/87
== END 2019-12-07 06:36 ==
LOC: D.ER 11:17
PROVIDERS: Family Medicine
DX: M87.9 Osteonecrosis, unspecified (principal); R10.9 Unspecified abdominal pain; F10.10 Alcohol abuse, uncomplicated; Y90.8 Blood alcohol level of 240 mg/100 ml or more; E11.9 Type 2 diabetes mellitus without complications; I10 Essential (primary) hypertension; Z72.0 Tobacco use; R53.1 Weakness; R41.0 Disorientation, unspecified; R45.851 Suicidal ideations